=== PATIENT | male | born 1965 | race African-American/Black ===

== ENCOUNTER 2016-12-29 12:02 | Emergency (ER) | payer BC ==
[2016-12-29 12:14] VITALS: BP 158/87; PULSE 88; TEMP 98.8; BMI 34.2
[2016-12-29] MEDS ORDERED: IBUPROFEN 600 MG TABLET (FP) PO ONE ×2 (13:09→13:12)
--- NOTE | 2016-12-29 13:52 | PDOC ---
History of Present Illness - General Chief Complaint: Cold Symptoms Stated Complaint: CONGESTED Time Seen by Provider: 12/29/16 12:50 History Source: Patient Exam Limitations: No Limitations - History of Present Illness Initial Comments: 12/29/16 13:45 51 yr male no medical history with c/o congestion in nose, eye pain, sinus tenderness and cough. no fever , has body aches. Past History - Past Medical History Allergies/Adverse Reactions: Allergies Allergy/AdvReac Type Severity Reaction Status Date / Time No Known Allergies Allergy Verified 12/29/16 12:11 Home Medications: Ambulatory Orders Amlodipine Besylate [Norvasc -] 2.5 mg PO DAILY 06/02/13 Simvastatin 10 mg PO DAILY 08/02/14 Fluticasone Prop 0.05% Nasal [Flonase -] 1 - 2 spray NS DAILY #1 spray.pump Ketotifen Fumarate [Alaway] 2 drop OU DAILY #1 bottle 12/29/16 COPD: No HTN: Yes Hypercholesterolemia: Yes - Family Disease History Family Disease History: Heart Disease: Father - Immunization History Immunization Up to Date: Yes - Suicide/Smoking/Psychosocial Hx Smoking Status: No Smoking History: Never smoked Have you smoked in the past 12 months: No Number of Cigarettes Smoked Daily: 0 Information on smoking cessation initiated: No Hx Alcohol Use: No Drug/Substance Use Hx: No Substance Use Type: None *Physical Exam - Vital Signs Last Vital Signs Temp Pulse Resp BP Pulse Ox 98.8 F 88 18 158/87 100 12/29/16 12:12 12/29/16 12:12 12/29/16 12:12 12/29/16 12:12 12/29/16 12:12 - Physical Exam General Appearance: Yes: Nourished HEENT: positive: EOMI, CHIQUIS, Nasal Congestion. negative: TMs Normal, Pharynx Normal, Rhinorrhea, Sinus Tenderness Neck: positive: Supple. negative: Lymphadenopathy (R), Lymphadenopathy (L) Respiratory/Chest: positive: Lungs Clear, Normal Breath Sounds. negative: Chest Tender, Crackles, Rales, Wheezing Cardiovascular: positive: Regular Rhythm, Regular Rate Gastrointestinal/Abdominal: positive: Normal Bowel Sounds, Soft Musculoskeletal: positive: Normal Inspection Extremity: positive: Normal Capillary Refill, Normal Inspection, Normal Range of Motion Integumentary: positive: Normal Color, Dry, Warm Neurologic: positive: Fully Oriented, Alert, Normal Mood/Affect, Normal Response , Motor Strength 5/5 ED Treatment Course - RADIOLOGY Radiology Studies Ordered: Category Date Time Status CHEST PA & LAT [RAD] Stat Radiology 12/29/16 13:09 Completed - Medications Given in the ED: ED Medications Discontinued Medications Generic Name Dose Route Start Last Admin Trade Name Gisselle PRN Reason Stop Dose Admin Ibuprofen 600 mg 12/29/16 13:09 12/29/16 13:11 Motrin - PO 12/29/16 13:10 600 mg ONCE ONE Administration Medical Decision Making - Medical Decision Making 12/29/16 14:21 cc: nasal congestion, cough, body aches no fever , cough no abd pain or urinary complaints pt has history of HTN took meds today was sick with same symptoms last week 12/29/16 14:24 negative flu neg CXR pt is no toxic well appearing will treat with supportive care *DC/Admit/Observation/Transfer Diagnosis at time of Disposition: Upper respiratory infection, viral - Discharge Dispostion Disposition: HOME Condition at time of disposition: Good - Prescriptions Prescriptions: Fluticasone Prop 0.05% Nasal [Flonase -] 1 - 2 spray NS DAILY #1 spray.pump Ketotifen Fumarate [Alaway] 2 drop OU DAILY #1 bottle - Referrals Referrals: Nirav Brooks [Primary Care Provider] - - Patient Instructions Additional Instructions: drink pleanty of fluids and get rest take over the counter ibuprofen (600mg ) every 6-8hrs for fever or pain use the flonase spray as directed for sinus congestion and any post nasal drip use the eye drops as directed they will help with any inflammation or irrition in the eyes also increase vitamin C and Zinc in your diet to help boost immune system follow with your doctor if any worsening symptoms - Post Discharge Activity
== END 2016-12-29 14:22 | disposition home or self-care (01) ==
LOC: JERFT 12:02
DX: J06.9 Acute upper respiratory infection, unspecified (principal); B97.89 Other viral agents as the cause of diseases classified elsewhere; I10 Essential (primary) hypertension; E78.00 Pure hypercholesterolemia, unspecified
CPT/HCPCS: 71020-TC; 87804; 99281-25

== ENCOUNTER 2017-05-18 08:59 | Emergency (ER) | payer BC ==
[2017-05-18 09:12] VITALS: BP 130/95; PULSE 95; TEMP 98; BMI 36.9
--- NOTE | 2017-05-18 10:00 | PDOC ---
History of Present Illness - General Chief Complaint: Eye Problem Stated Complaint: EYE PROBLEM Time Seen by Provider: 05/18/17 09:53 History Source: Patient Exam Limitations: No Limitations - History of Present Illness Initial Comments: 05/18/17 11:51 CHIEF COMPLAINT:Bilateral eye redness, photophobia, pain HISTORY OF PRESENT ILLNESS: Patient is a 52-year-old male with history of pellucid marginal disease presents with bilateral eye pain, photophobia, redness which started yesterday after applying new contacts. Patient received contacts from his corneal specialist he was supposed to wear them 2 hours to date use to them after taking them off at 7 PM yesterday developed redness with pain. Severity: moderate Past History - Past Medical History Allergies/Adverse Reactions: Allergies Allergy/AdvReac Type Severity Reaction Status Date / Time No Known Allergies Allergy Verified 05/18/17 09:12 Home Medications: Ambulatory Orders Amlodipine Besylate [Norvasc -] 2.5 mg PO DAILY 06/02/13 Simvastatin 10 mg PO DAILY 08/02/14 Fluticasone Prop 0.05% Nasal [Flonase -] 1 - 2 spray NS DAILY #1 spray.pump Ketotifen Fumarate [Alaway] 2 drop OU DAILY #1 bottle 12/29/16 Moxifloxacin HCl [Vigamox 0.5% Eye Drops -] 1 drop OU TID #1 drops 05/18/17 COPD: No HTN: Yes Hypercholesterolemia: Yes - Family Disease History Family Disease History: Heart Disease: Father - Immunization History Immunization Up to Date: Yes - Suicide/Smoking/Psychosocial Hx Smoking Status: No Smoking History: Never smoked Have you smoked in the past 12 months: No Number of Cigarettes Smoked Daily: 0 Information on smoking cessation initiated: No Hx Alcohol Use: No Drug/Substance Use Hx: No Substance Use Type: None Review of Systems - Review of Systems Constitutional: No: Symptoms Reported HEENTM: Yes: Blurred Vision, Other (erythema with pain to bilateral eyes) Respiratory: No: Symptoms reported Cardiac (ROS): No: Symptoms Reported Musculoskeletal: No: Symptoms Reported Integumentary: No: Symptoms Reported Hematologic/Lymphatic: No: Symptoms Reported All Other Systems: Reviewed and Negative *Physical Exam - Vital Signs Last Vital Signs Temp Pulse Resp BP Pulse Ox 98 F 95 H 16 130/95 100 05/18/17 09:05 05/18/17 09:05 05/18/17 09:05 05/18/17 09:05 05/18/17 09:05 - Physical Exam General Appearance: Yes: Appropriately Dressed. No: Apparent Distress HEENT: positive: Other (after fluorescein staining to bilateral eyes, no corneal abrasions are noted, bilateral conjunctiva injected extending into the limbus.) Neck: negative: Tender, Tender lateral, Tender midline Respiratory/Chest: positive: Lungs Clear, Normal Breath Sounds. negative: Respiratory Distress, Accessory Muscle Use Cardiovascular: positive: Regular Rhythm, Regular Rate Lymphatic: negative: Adenopathy Integumentary: positive: Normal Color, Dry. negative: Erythema, Swelling, Ecchymosis, Bruising Neurologic: positive: Alert, Normal Mood/Affect, Normal Response, Motor Strength 5/5 Medical Decision Making - Medical Decision Making 05/18/17 12:01 A/P: Patient with bilateral injected conjunctiva, pain with photophobia I have spoken to patient's corneal specialist Dr. Woody at [phone], patient with chronic issues in regarding contact lenses in relation to the pellucid marginal disease. Will discharge patient on Vigamox, motrin for pain, follow up with MD Woody on . Patient verbalized understanding has had this reaction in the past. *DC/Admit/Observation/Transfer Diagnosis at time of Disposition: Pellucid marginal degeneration of both corneas Conjunctivitis Qualifiers: Conjunctivitis type: acute Acute conjunctivitis type: bacterial Laterality: bilateral Qualified Code(s): H10.33 - Unspecified acute conjunctivitis, bilateral - Discharge Dispostion Disposition: HOME Condition at time of disposition: Stable Admit: No - Prescriptions Prescriptions: Moxifloxacin HCl [Vigamox 0.5% Eye Drops -] 1 drop OU TID #1 drops - Referrals Referrals: Lore Norwood [Other] ( Rose 11:[address] [place] [address] ) - Patient Instructions Additional Instructions: No contact lenses Follow up on with Dr. Darrion Ceja for pain * Refrain from touching or scratching eye * Please wash hands frequently * Please followup with his primary care doctor in 2 days if symptoms persist * Medication as prescribed * Warm compresses to eye * If increased redness, swelling, pain to the eye please follow up with primary care doctor immediately or return to emergency room - Post Discharge Activity Forms/Work/School Notes: Back to Work
== END 2017-05-18 10:06 | disposition home or self-care (01) ==
LOC: JERFT 08:59
DX: H10.33 Unspecified acute conjunctivitis, bilateral (principal); H18.49 Other corneal degeneration; I10 Essential (primary) hypertension; E78.00 Pure hypercholesterolemia, unspecified
CPT/HCPCS: 99281-25

== ENCOUNTER 2017-05-31 09:43 | Emergency (ER) | payer BC ==
[2017-05-31 09:53] VITALS: BP 135/98; PULSE 77; TEMP 98.3; BMI 34.2
--- NOTE | 2017-05-31 10:52 | PDOC ---
History of Present Illness - General Chief Complaint: Eye Problem Stated Complaint: REVISIT, EYE PROBLEM Time Seen by Provider: 05/31/17 10:48 History Source: Patient Exam Limitations: No Limitations (52y/o M with b/l eye redness and blurred vision X 2 days, s/p ED visit 2wks ago) Past History - Travel Traveled outside of the country in the last 30 days: No Close contact w/someone who was outside of country & ill: No - Past Medical History Allergies/Adverse Reactions: Allergies Allergy/AdvReac Type Severity Reaction Status Date / Time No Known Allergies Allergy Verified 05/31/17 09:53 Home Medications: Ambulatory Orders Amlodipine Besylate [Norvasc -] 2.5 mg PO DAILY 06/02/13 Simvastatin 10 mg PO DAILY 08/02/14 Fluticasone Prop 0.05% Nasal [Flonase -] 1 - 2 spray NS DAILY #1 spray.pump Ketotifen Fumarate [Alaway] 2 drop OU DAILY #1 bottle 12/29/16 Moxifloxacin HCl [Vigamox 0.5% Eye Drops -] 1 drop OU TID #1 drops 05/18/17 COPD: No HTN: Yes Hypercholesterolemia: Yes - Family Disease History Family Disease History: Heart Disease: Father - Immunization History Immunization Up to Date: Yes - Suicide/Smoking/Psychosocial Hx Smoking Status: No Smoking History: Never smoked Have you smoked in the past 12 months: No Number of Cigarettes Smoked Daily: 0 Hx Alcohol Use: No Drug/Substance Use Hx: No Substance Use Type: None Review of Systems - Review of Systems Is the patient limited Tajik proficient: No Constitutional: No: Chills, Fever HEENTM: Yes: Eye Pain, Blurred Vision, Other (b/l eye redness). No: Tearing, Recent change in vision, Double Vision, Ear Pain, Ear Discharge, Tinnitus, Mouth Pain *Physical Exam - Vital Signs Last Vital Signs Temp Pulse Resp BP Pulse Ox 98.3 F 77 18 135/98 99 05/31/17 09:50 05/31/17 09:50 05/31/17 09:50 05/31/17 09:50 05/31/17 09:50 - Physical Exam General Appearance: Yes: Nourished, Appropriately Dressed HEENT: positive: EOMI, CHIQUIS, Photophobia, Other (b/l eye injection) Medical Decision Making - Medical Decision Making 05/31/17 10:51 52 years old male, with h/o Pellucid Marginal Eye disease--under the care of Corneal Specialist Dr. Collins, pt was seen in ED 2wks ago for photophobia, eye pain, Tx with Vigamox. He reports that he attempt to apply contact lense 2 days ago,, use contact lens cleaning solution. [place] eye irritation and photophobia. He is using vigamox as prescribed. Denies trauma. Pt has an appt to see his Corneal Specialist tomorrow. 05/31/17 12:07 EYE EXAMINATION: unable to get visual acuity, states he can only see with contact lense The lid and lashes are normal. Extraocular movements are intact. The conjunctiva is clear with erythema, + injection, no discharge The corneal surface is normal post tetracaine and fluorescein. There is no corneal abrasion or foreign body. There is no abnormal fluorescein uptake. The pupils are equal, round and reactive to light. The fundus shows normal vessels and normal discs. patient instructed to follow-up Corneal specialist as scheduled tomorrow. Continue Vigamox ad. Do not reapply contact lens until cleared to do so *DC/Admit/Observation/Transfer Diagnosis at time of Disposition: Conjunctivitis - Discharge Dispostion Disposition: HOME Condition at time of disposition: Stable - Referrals Referrals: Nirav Brooks [Primary Care Provider] - - Patient Instructions Additional Instructions: FOllow up Dr Woody as scheduled tomorrow Do not reapply contact lenses - Post Discharge Activity Forms/Work/School Notes: Back to Work
[2017-05-31] MEDS ORDERED: TETRACAINE 0.5% OPHTH SOLN 2 ML BOTTLE ONE (10:54)
[2017-05-31] MEDS ORDERED: FLUORESCEIN NA 1 EA STRIP ONE (10:54)
[2017-05-31] MEDS ORDERED: TETRACAINE 0.5% OPHTH SOLN 2 ML BOTTLE OU ONE (11:04)
[2017-05-31] MEDS ORDERED: FLUORESCEIN NA 1 EA STRIP OU ONE (11:05)
== END 2017-05-31 11:24 | disposition home or self-care (01) ==
LOC: JERFT 09:43
DX: H10.33 Unspecified acute conjunctivitis, bilateral (principal); I10 Essential (primary) hypertension; E78.00 Pure hypercholesterolemia, unspecified; Z86.69 Personal history of other diseases of the nervous system and sense organs
CPT/HCPCS: 99281-25

== ENCOUNTER 2018-01-05 05:38 | Emergency (ER) | payer BC ==
[2018-01-05 07:09] VITALS: BP 115/81; PULSE 78; TEMP 98.2; BMI 35.6
[2018-01-05] MEDS ORDERED: ACETAMINOPHEN 325 MG TABLET (FP) PO ONE (09:17)
--- NOTE | 2018-01-05 09:17 | PDOC ---
History of Present Illness - General Chief Complaint: Sore Throat Stated Complaint: SORE THROAT Time Seen by Provider: 01/05/18 07:29 History Source: Patient Exam Limitations: No Limitations - History of Present Illness Initial Comments: 01/05/18 09:13 Mr Washington is a 52 YOM with h/o HTN and HLD presenting with sore throat x 1 day tolerating PO and fluid intake denies sick contacts occasional cough, no production or congestion. denies smoking drugs or alcohol use no allergies or environmental triggers Past History - Past Medical History Allergies/Adverse Reactions: Allergies Allergy/AdvReac Type Severity Reaction Status Date / Time No Known Allergies Allergy Verified 01/05/18 07:09 Home Medications: Ambulatory Orders Amlodipine Besylate [Norvasc -] 2.5 mg PO DAILY 06/02/13 Simvastatin 10 mg PO DAILY 08/02/14 Fluticasone Prop 0.05% Nasal [Flonase -] 1 - 2 spray NS DAILY PRN 01/05/18 COPD: No CHF: No HTN: Yes Hypercholesterolemia: Yes - Surgical History Cardiac Surgery: No GI Surgery: No Lung Surgery: No Neurologic Surgery: No - Family Disease History Family Disease History: Heart Disease: Father - Immunization History Immunization Up to Date: Yes - Suicide/Smoking/Psychosocial Hx Smoking Status: No Smoking History: Never smoked Have you smoked in the past 12 months: No Number of Cigarettes Smoked Daily: 0 Information on smoking cessation initiated: No Hx Alcohol Use: No Drug/Substance Use Hx: No Substance Use Type: None Review of Systems - Review of Systems Able to Perform ROS?: Yes Comments:: 01/05/18 09:14 Constitutional: no fevers or chills. HEENT: no headache or dizziness. No congestion.+sore throat CVS: no cp or syncope. Resp: no sob. + cough. Abdomen: no abdominal pain, nausea or vomiting. MUSCULOSKELETAL: No joint pain and swelling. No neck or back pain. SKIN: no redness or skin changes, no discharge, no rash. Hematologic: no easy bruising/bleeding. NEUROLOGIC: No headache, dizziness All other systems reviewed and negative, or as documented in HPI. *Physical Exam - Vital Signs Last Vital Signs Temp Pulse Resp BP Pulse Ox 98.2 F 78 16 115/81 98 01/05/18 05:40 01/05/18 05:40 01/05/18 05:40 01/05/18 05:40 01/05/18 05:40 - Physical Exam Comments: 01/05/18 09:14 General: Well appearing, awake and alert, NAD. HEENT: NCAT, PERRL, EOMI, clear conjunctiva, anicteric, moist mucus membranes, clear oropharynx, no oral lesions.. normal phonation Neck: neck supple, FROM Resp: CTAB, normal and even respirations, no respiratory distress CVS: RRR, no murmurs, 2+ peripheral pulses throughout, no peripheral edema Abdomen: soft, NTND, no peritoneal signs. Back: nontender, normal inspection and ROM MSK: no edema, STOVER x4, ROM intact. No clubbing or cyanosis. normal bulk and tone. Extrem: no calf tenderness Neuro: alert, oriented appropriately; no focal neurologic deficits Skin: warm and well perfused, cap refill <2 sec, normal color Medical Decision Making - Medical Decision Making 01/05/18 09:15 52-year-old male with history of hypertension hyperlipidemia presenting with sore throat times one day. Vital signs are normal, no fevers. Airway patent, or gross findings on oropharyngeal exam. strep test ag prelim negative, so likely neg for strep throat cultures to follow tolerating PO intake, given tylenol with relief no systemic findings, well appearing. I discussed the physical exam findings, ancillary test results and final diagnoses with the patient. I answered all of the patient's questions. The patient was satisfied with the care received and felt comfortable with the discharge plan and treatment plan. The patient will return to the Emergency Department with any new, persistent or worsening symptoms. - supportive care instructions including tylenol for analgesia, hydration, salt water gargles, warm lemon tea and clean/fresh air. 01/05/18 09:18 01/05/18 09:33 *DC/Admit/Observation/Transfer Diagnosis at time of Disposition: Pharyngitis - Discharge Dispostion Disposition: HOME Condition at time of disposition: Good Decision to Admit order: No - Referrals Referrals: Nahomi Pope MD [Primary Care Provider] - - Patient Instructions Printed Discharge Instructions: DI for Pharyngitis/Tonsillopharyngitis -- Adult Additional Instructions: - supportive care instructions including tylenol for analgesia, hydration, salt water gargles, warm lemon tea and clean/fresh air. follow up with primary doctor follow up on your throat culture return if worsening symptoms including high fever, difficulty with airway and swallowing, worse pain, respiratory distress or dehydration. - Post Discharge Activity Forms/Work/School Notes: Back to Work
[2018-01-05] MEDS ORDERED: ACETAMINOPHEN 325 MG TABLET (FP) ONE (09:36)
== END 2018-01-05 09:41 | disposition home or self-care (01) ==
LOC: JER 05:38
DX: J02.9 Acute pharyngitis, unspecified (principal); I10 Essential (primary) hypertension; E78.00 Pure hypercholesterolemia, unspecified; E78.5 Hyperlipidemia, unspecified
CPT/HCPCS: 87070; 99282-25

== ENCOUNTER 2018-01-21 16:33 | Emergency (ER) | payer BC ==
--- NOTE | 2018-01-21 17:23 | PDOC ---
Rapid Medical Evaluation Time Seen by Provider: 01/21/18 17:22 Medical Evaluation: Allergies Allergy/AdvReac Type Severity Reaction Status Date / Time No Known Allergies Allergy Verified 01/05/18 07:09 I have performed a brief in-person evaluation of this patient. The patient presents with a chief complaint of: here because a got a call of a positive throat culture 2 weeks ago. he has no complaints. he came in because his son is here to be seen Pertinent physical exam findings: none I have ordered the following: nothing The patient will proceed to the ED for further evaluation. Discharge Disposition - Diagnosis Cough - Referrals - Patient Instructions - Post Discharge Activity
[2018-01-21 17:28] VITALS: BP 131/77; PULSE 99; TEMP 98.7; BMI 34.2
--- NOTE | 2018-01-21 17:51 | PDOC ---
History of Present Illness - General Chief Complaint: Cold Symptoms Stated Complaint: COLD SYMPTOMS Time Seen by Provider: 01/21/18 17:22 History Source: Patient Exam Limitations: No Limitations - History of Present Illness Initial Comments: 01/21/18 17:45 HISTORY OF PRESENT ILLNESS: 52-year-old male with past medical history of hypertension who presents emergency department for reevaluation of sore throat and cough for the past 3 weeks. Patient was seen and evaluated here on January 05 was found to have a positive streptococcal infection. Patient was unable to be contacted since that time and has never been treated. Patient reports continued sore throat and dry cough. No recent travel or sick contacts. PAST MEDICAL HISTORY: HTN SURGICAL HISTORY: Denies ALLERGIES: No known drug allergies REVIEW OF SYSTEMS General/Constitutional: Denies fever or chills. Denies weakness, weight change. HEENT: Denies change in vision. Denies ear pain or discharge. +sore throat. Cardiovascular: Denies chest pain or shortness of breath. Respiratory: Dry cough. Denies wheezing, or hemoptysis. Gastrointestinal: Denies nausea, vomiting, diarrhea or constipation. Denies rectal bleeding. Genitourinary: Denies dysuria, frequency, or change in urination. Musculoskeletal: Denies joint or muscle swelling or pain. Denies neck or back pain. Skin and breasts: Denies rash or easy bruising. Neurologic: Denies headache, vertigo, loss of consciousness, or loss of sensation. Psychiatric: Denies depression or anxiety. Endocrine: Denies increased thirst. Denies abnormal weight change. Hematologic/Lymphatic: Denies anemia, easy bleeding, or history of blood clots. Allergic/Immunologic: Denies hives or skin allergy. Denies latex allergy. PHYSICAL EXAM General Appearance: Well-appearing, appropriately dressed. No apparent distress , no intoxication. HEENT: EOMI, PERRLA, normal ENT inspection, normal voice, TMs normal. No conjunctival pallor. No photophobia, scleral icterus. OP erythematous without lesions or exudate. Neck: Supple. Trachea midline. No tenderness, rigidity, carotid bruit, stridor , lymphadenopathy, or thyromegaly. Respiratory/Chest: Lungs CTAB. No shortness of breath, chest tenderness, respiratory distress, accessory muscle use. No crackles, rales, rhonchi, stridor , wheezing, dullness Cardiovascular: RRR. S1, S2. No JVD, murmur, bradycardia, tachycardia. Past History - Past Medical History Allergies/Adverse Reactions: Allergies Allergy/AdvReac Type Severity Reaction Status Date / Time No Known Allergies Allergy Verified 01/21/18 17:22 Home Medications: Ambulatory Orders Amlodipine Besylate [Norvasc -] 2.5 mg PO DAILY 06/02/13 Simvastatin 10 mg PO DAILY 08/02/14 Fluticasone Prop 0.05% Nasal [Flonase -] 1 - 2 spray NS DAILY PRN 01/05/18 Amoxicillin - [Amoxicillin 500mg Capsule -] 500 mg PO BID #20 capsule 01/21/18 COPD: No CHF: No HTN: Yes Hypercholesterolemia: Yes - Surgical History Cardiac Surgery: No GI Surgery: No Lung Surgery: No Neurologic Surgery: No - Family Disease History Family Disease History: Heart Disease: Father - Immunization History Immunization Up to Date: Yes - Suicide/Smoking/Psychosocial Hx Smoking Status: No Smoking History: Never smoked Have you smoked in the past 12 months: No Number of Cigarettes Smoked Daily: 0 Hx Alcohol Use: No Drug/Substance Use Hx: No Substance Use Type: None *Physical Exam - Vital Signs Last Vital Signs Temp Pulse Resp BP Pulse Ox 98.7 F 99 H 18 131/77 99 01/21/18 17:27 01/21/18 17:27 01/21/18 17:27 01/21/18 17:27 01/21/18 17:27 Moderate Sedation - Procedure Monitoring Vital Signs: Procedure Monitoring Vital Signs Temperature 98.7 F 01/21/18 17:27 Pulse Rate 99 H 01/21/18 17:27 Respiratory Rate 18 01/21/18 17:27 Blood Pressure 131/77 01/21/18 17:27 O2 Sat by Pulse Oximetry (%) 99 01/21/18 17:27 Medical Decision Making - Medical Decision Making 01/21/18 17:45 A/P: 52-year-old man with sore throat and dry cough for the past 3 weeks. TMs within normal limits bilaterally Oropharynx erythematous No lesions and exudate present No abscess present Lungs clear to auscultation bilaterally Physical exam is consistent with a pharyngitis. Pt had a positive streptococcal pharyngitis on 01/05. I will treat the patient for strep throat with amoxicillin 500 mg twice a day for 10 days. The patient has been instructed to purchase a new toothbrush into [facility] on day 3 of antibiotic therapy. Pt verbalizes understanding of discharge instructions. *DC/Admit/Observation/Transfer Diagnosis at time of Disposition: Pharyngitis Qualifiers: Pharyngitis/tonsillitis etiology: streptococcus Qualified Code(s): J02.0 - Streptococcal pharyngitis - Discharge Dispostion Disposition: HOME Condition at time of disposition: Stable Decision to Admit order: No - Prescriptions Prescriptions: Amoxicillin - [Amoxicillin 500mg Capsule -] 500 mg PO BID #20 capsule - Referrals Referrals: Nahomi Pope MD [Primary Care Provider] - - Patient Instructions Additional Instructions: Take amoxicillin as prescribed. Salt water garggles. Throw away your toothbrush in 3 days and start using a new toothbrush. No sharing of drinks, utensils or toothbrushes. Take Motrin as directed by superintendent sanitation's instructions. Return to ED for worsening fevers, worsening sore throat, chest pain, shortness of breath or any other concerns. - Post Discharge Activity Forms/Work/School Notes: Back to Work
== END 2018-01-21 17:51 | disposition home or self-care (01) ==
LOC: JERFT 16:33
DX: J02.0 Streptococcal pharyngitis (principal); B95.5 Unspecified streptococcus as the cause of diseases classified elsewhere; I10 Essential (primary) hypertension; E78.00 Pure hypercholesterolemia, unspecified
CPT/HCPCS: 99281-25

== ENCOUNTER 2018-04-12 18:48 | Observation (INO) | payer BC ==
[2018-04-12 19:07] VITALS: BMI 35.6
[2018-04-12] MEDS ORDERED: ASPIRIN 81 MG CHEWABLE TABLETS PO ONE (21:14)
--- NOTE | 2018-04-12 21:18 | PDOC ---
Attending Attestation - HPI HPI: 04/12/18 21:37 The patient is a 53 year old male with a PMH of HTN and HLD who presents to ER with chest pain for the past 3 days. Patient describes the chest pain as brief lasting approximately 1 second at a time, that occur 4 times per day, localized on the left side of his chest with radiation to the left shoulder and the left side of his scalp. Patient was seen at [facility] yesterday and had blood work and an EKG done there, which were both negative. Patient was discharged home from the ER and told to follow up with cardiology. Patient was seen by his PCP, Dr. Pope, who spoke to Dr. Macedo, cardiology, and told the patient to come to the ER for further evaluation. Patient is a nonsmoker. Patient has a negative cardiac family history. Patient admits to having a stress test many years ago. Patient denies any shortness of breath, nausea, vomiting, dizziness, lightheadedness, diarrhea, constipation, or urinary symptoms. Allergies: NKDA Surgeries: None reported Social Hx: No reported alcohol, drug or cigarette use. PCP: Dr. Pope <Kathi Resendez - Last Filed: 04/12/18 21:37> - Resident Resident Name: Sekou Roe - ED Attending Attestation I have performed the following: I have examined & evaluated the patient, The case was reviewed & discussed with the resident, I agree w/resident's findings & plan - Physicial Exam PE: 04/12/18 21:56 Agree with resident's exam - Medical Decision Making 04/12/18 21:55 Patient had active pain while in his primary care physician's office and was advised via telephone to report to the emergency department In light of multiple cardiac risk factors and recent chest pain, most recently in the emergency department waiting room he will be admitted for further evaluation At this time EKG shows no acute or concerning ST segment changes Plan for observation on hospitalist service pending lab results <Sonam Dai - Last Filed: 04/12/18 21:56>
--- NOTE | 2018-04-12 21:32 | PDOC ---
History of Present Illness - General Chief Complaint: Chest Pain Stated Complaint: CHEST PAIN Time Seen by Provider: 04/12/18 21:14 - History of Present Illness Initial Comments: 04/12/18 21:35 53M with pmh of HTN and HLD presents to the ED with random, 1 second episodes of sharp chest pain spread out throughout the day (4 episodes a day) also affecting his left shoulder and the left side of his occipital head. He visited another ER yesterday, all labs and EKG were negative, and was told to follow up with a line erector. He went to see his PCP today who called Dr. Ludwig who advised him to go to the ER. Patient had 2 more episodes in the waiting room. Denies shortness of breath, sweating, dizziness. Past History - Past Medical History Allergies/Adverse Reactions: Allergies Allergy/AdvReac Type Severity Reaction Status Date / Time No Known Allergies Allergy Verified 04/12/18 21:34 Home Medications: Ambulatory Orders Amlodipine Besylate [Norvasc -] 5 mg PO HS 06/02/13 Simvastatin 20 mg PO HS 08/02/14 Ergocalciferol [Vitamin D2] 50,000 unit PO SA 04/12/18 COPD: No CHF: No HTN: Yes Hypercholesterolemia: Yes - Surgical History Cardiac Surgery: No GI Surgery: No Lung Surgery: No Neurologic Surgery: No - Family Disease History Family Disease History: Heart Disease: Father - Immunization History Immunization Up to Date: Yes - Suicide/Smoking/Psychosocial Hx Smoking Status: No Smoking History: Never smoked Have you smoked in the past 12 months: No Number of Cigarettes Smoked Daily: 0 Information on smoking cessation initiated: No Hx Alcohol Use: No Drug/Substance Use Hx: No Substance Use Type: None Review of Systems - Review of Systems Able to Perform ROS?: Yes Is the patient limited Vietnamese proficient: No Constitutional: No: Symptoms Reported HEENTM: No: Symptoms Reported Respiratory: No: Symptoms reported Cardiac (ROS): Yes: See HPI ABD/GI: No: Symptoms Reported Integumentary: No: Symptoms Reported Neurological: No: Symptoms reported All Other Systems: Reviewed and Negative *Physical Exam - Vital Signs Last Vital Signs Temp Pulse Resp BP Pulse Ox 98.4 F 85 18 99/74 98 04/12/18 19:02 04/12/18 19:02 04/12/18 19:02 04/12/18 19:02 04/12/18 22:18 - Physical Exam General Appearance: Yes: Nourished, Appropriately Dressed. No: Apparent Distress HEENT: positive: EOMI, CH[place]QU[place], Normal ENT Inspection Respiratory/Chest: positive: Lungs Clear, Normal Breath Sounds. negative: Chest Tender, Respiratory Distress Cardiovascular: positive: Regular Rhythm, Regular Rate, S1, S2 Gastrointestinal/Abdominal: positive: Normal Bowel Sounds, Flat, Soft. negative : Tender Musculoskeletal: positive: Normal Inspection. negative: CVA Tenderness Extremity: positive: Normal Capillary Refill, Normal Inspection, Normal Range of Motion Integumentary: positive: Normal Color, Dry, Warm Neurologic: positive: Fully Oriented, Alert, Normal Mood/Affect, Normal Response , Motor Strength 5/5 Heart Score/ECG Review - History History: Slightly suspicious - Electrocardiogram EKG: Normal - Age Age: 45-65 - Risk Factors Risk Factors Heart Score: Yes Hx Hypercholesterolemia, Yes Hx Hypertension Based on the list above the patient has:: 1-2 risk factors Moderate Sedation - Procedure Monitoring Vital Signs: Procedure Monitoring Vital Signs Temperature 98.4 F 04/12/18 19:02 Pulse Rate 85 04/12/18 19:02 Respiratory Rate 18 04/12/18 19:02 Blood Pressure 99/74 04/12/18 19:02 O2 Sat by Pulse Oximetry (%) 98 04/12/18 22:18 ED Treatment Course - LABORATORY CBC & Chemistry Diagram: 04/12/18 21:55 04/12/18 21:55 - ADDITIONAL ORDERS Additional order review: Laboratory Results 04/12/18 04/12/18 04/12/18 21:55 21:55 21:55 PT with INR 13.10 H INR 1.11 H Sodium 140 Potassium 4.0 Chloride 103 Carbon Dioxide 28 Anion Gap 9 BUN 15 Creatinine 1.1 Creat Clearance w eGFR > 60 Random Glucose 104 Calcium 9.1 Magnesium 2.3 Total Bilirubin 1.1 H AST 14 L ALT 20 Alkaline Phosphatase 77 Creatine Kinase 179 Creatine Kinase Index 0.8 CK-MB (CK-2) 1.5 Troponin I Cancelled < 0.02 Total Protein 7.6 Albumin 4.1 04/12/18 21:55 RBC 4.44 MCV 90.9 MCHC 35.7 RDW 14.3 MPV 8.7 Neutrophils % 55.8 D Lymphocytes % 31.6 D Monocytes % 9.7 Eosinophils % 1.7 D Basophils % 1.2 D - RADIOLOGY Radiology Studies Ordered: Category Date Time Status CHEST X-RAY PORTABLE* [RAD] Stat Radiology 04/12/18 21:15 Taken - Medications Given in the ED: ED Medications Discontinued Medications Generic Name Dose Route Start Last Admin Trade Name Freq PRN Reason Stop Dose Admin Aspirin 162 mg 04/12/18 21:14 04/12/18 22:01 Asa - PO 04/12/18 21:15 162 mg ONCE ONE Administration Medical Decision Making - Medical Decision Making 04/12/18 22:19 53m with HTN and HLD presenting with atypical chest pain for 3 days. Will obtain ekg and basic labs. EKG normal. Spoke to Dr Paez who will see the aptient on the floor. Admit to tele obs. *DC/Admit/Observation/Transfer Diagnosis at time of Disposition: Atypical chest pain - Discharge Dispostion Condition at time of disposition: Stable Decision to Admit order: Yes Decision to Admit order Date/Time: Decision to Admit Order Category Date Time Status Decision to Admit to Hospital Routine Admission 04/12/18 23:12 Active - Referrals Referrals: Nahomi Pope MD [Primary Care Provider] - - Patient Instructions - Post Discharge Activity
[2018-04-12] MEDS ORDERED: ASPIRIN 81 MG CHEWABLE TABLETS ONE (21:43)
[2018-04-12 22:24] LABS: BASO % 1.2 % (0-2.0); EOS % 1.7 % (0-4.5); HEMATOCRIT 40.3 % (35.4-49); HEMOGLOBIN 14.4 GM/dL (11.7-16.9); LYMPH % 31.6 % (8-40); MCH 32.5 pg (25.7-33.7); MCHC 35.7 g/dl (32.0-35.9); MEAN CELL VOLUME 90.9 fl (80-96); MEAN PLT VOLUME 8.7 fl (7.5-11.1); MONO % 9.7 % (3.8-10.2); NEUT % 55.8 % (42.8-82.8); PLATELET COUNT 220 K/MM3 (134-434); RBC 4.44 M/mm3 (4.00-5.60); RDW 14.3 % (11.9-15.9); WHITE BLOOD COUNT 5.9 K/mm3 (4.0-10.0)
[2018-04-12 22:40] LABS: INR 1.11 (0.83-1.09); PROTHROMBIN TIME (PATIENT) 13.1 SEC (9.7-13.0)
[2018-04-12 23:00] LABS: ALBUMIN 4.1 g/dl (3.4-5.0); ALK PHOS 77 U/L (45-117); ANION GAP 9 MMOL/L (8-16); BILIRUBIN,TOTAL 1.1 mg/dL (0.2-1); BLOOD UREA NITROGEN 15 mg/dL (7-18); CALCIUM 9.1 mg/dL (8.5-10.1); CHLORIDE 103 mmol/L (98-107); CO2 28 mmol/L (21-32); CREATININE 1.1 mg/dL (0.55-1.3); GLUCOSE,RANDOM 104 mg/dL (74-106); MAGNESIUM 2.3 mg/dL (1.8-2.4); SGOT/AST 14 U/L (15-37); SGPT/ALT 20 U/L (13-61); SODIUM 140 mmol/L (136-145); TOT PROT 7.6 g/dl (6.4-8.2)
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
--- NOTE | 2018-04-13 00:50 | PN ---
Teaching Attending Note Name of Resident: Dia Avina ATTENDING PHYSICIAN STATEMENT I saw and evaluated the patient. I reviewed the resident's note and discussed the case with the resident. I agree with the resident's findings and plan as documented. SUBJECTIVE: Seen and examined; please see resident note for further historical details. Briefly this is a 53 y/o male with a PMH of GERD and HTN on amlodipine who presents with several days of intermittent chest pain that was waxing and waning in nature but recently became more constant. L-sided, nonreproducible, sharp, and moderate in intensity. Seen in [place] on Thursday with this and had a negative work up in their ER and was discharged for followup with a CV up there. He lives in [place], though, so when he came back home and continued to have pain he saw his PCP who sent him to the ER after speaking with Dr. Macedo. EKG unremarkable and troponin is negative initially. He was chest pain free when I saw him in the ER. He is in good spirits. Has been stressed at home and friend of [place] 1 week ago. Poor diet habits, non-smoker, non- drinker. He will be placed on telemetry on the medicine service with CV consultation and will likely require further testing 10 sys ROS done and negative aside from HPI PMH, PSH, Family hx, Social hx reviewed Medication list pending reconciliation; he didn't take tonight's BP med OBJECTIVE: VS, labs, imaging reviewed NAD, AAO, Resting comfortably in bed NC AT EOMI PERRLA RRR s1/2 no mgr Lungs CTAB, w/ sym exp NT ND +BS CN2-12 wnl, no fnd Normal mood, appropriate behavior EKG reviewed CXR without acute disease pending official report Negative initial troponin; labs as a whole are unremarkable in general ASSESSMENT AND PLAN: Patient presents for several days of chest pain 1) Chest pain in adult, r/o ACS -Place on telemetry, trend troponin, monitor for fruther sx. -Check A1c, lipids, TSH to stratify risk -If he does have ACS change statin to atorva or crestor -ASA 81mg PO QD for primary prevention -CV is aware of patient and will see in the AM 2) HTN -Giving tonights BP med; monitor while inpatient. May need adjustment of regimine depending on what is found 3) HLD -Continue statin; adjust if needed FENA -LR@60 while NPO -PRN replete -NPO in case stress needed -As tolerated Full Code
[2018-04-13] MEDS ORDERED: LACTATED RINGERS SOLUTION 1,000 ML/1,000 ML INFUS.BAG IV SCH (01:15)
[2018-04-13 07:25] LABS: EOS % 2.2 % (0-4.5); HEMATOCRIT 37.7 % (35.4-49); HEMOGLOBIN 13.1 GM/dL (11.7-16.9); LYMPH % 38.8 % (8-40); MCH 31.4 pg (25.7-33.7); MCHC 34.8 g/dl (32.0-35.9); MEAN CELL VOLUME 90.1 fl (80-96); MEAN PLT VOLUME 8.5 fl (7.5-11.1); MONO % 11.7 % (3.8-10.2); NEUT % 46.3 % (42.8-82.8); PLATELET COUNT 201 K/MM3 (134-434); RBC 4.19 M/mm3 (4.00-5.60); RDW 13.9 % (11.9-15.9); WHITE BLOOD COUNT 5.1 K/mm3 (4.0-10.0)
[2018-04-13 08:01] LABS: ALBUMIN 3.6 g/dl (3.4-5.0); ALK PHOS 78 U/L (45-117); ANION GAP 6 MMOL/L (8-16); BILIRUBIN,TOTAL 0.9 mg/dL (0.2-1); BLOOD UREA NITROGEN 14 mg/dL (7-18); CALCIUM 8.3 mg/dL (8.5-10.1); CHLORIDE 104 mmol/L (98-107); CHOLESTEROL 182 mg/dL (50-200); CO2 28 mmol/L (21-32); CREATININE 0.9 mg/dL (0.55-1.3); GLUCOSE,RANDOM 91 mg/dL (74-106); HDL CHOLESTEROL 53 mg/dL (40-60); PHOSPHOROUS 4.7 mg/dL (2.5-4.9); POTASSIUM 3.8 mmol/L (3.5-5.1); SGOT/AST 14 U/L (15-37); SGPT/ALT 18 U/L (13-61); SODIUM 138 mmol/L (136-145); TOT PROT 6.7 g/dl (6.4-8.2); TRIGLYCERIDES 106 mg/dL (0-150)
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
[2018-04-13] MEDS ORDERED: ASPIRIN 81 MG CHEWABLE TABLETS PO SCH (10:00)
[2018-04-13] MEDS ORDERED: ENOXAPARIN NA (PORCINE) 40 MG/0.4 ML DISP.SYRIN SQ SCH (10:00)
[2018-04-13] MEDS ORDERED: ASPIRIN 81 MG CHEWABLE TABLETS ONE (10:08)
[2018-04-13] MEDS ORDERED: ENOXAPARIN NA (PORCINE) 40 MG/0.4 ML DISP.SYRIN SQ ONE (10:08)
--- NOTE | 2018-04-13 10:50 | EKG ---
Test Reason : Blood Pressure : / mmHG Vent. Rate : 088 BPM Atrial Rate : 088 BPM P-R Int : 174 ms QRS Dur : 104 ms QT Int : 364 ms P-R-T Axes : 047 005 040 degrees QTc Int : 440 ms NORMAL SINUS RHYTHM NORMAL ECG WHEN COMPARED WITH ECG OF 30-AUG-2014 01:34, NO SIGNIFICANT CHANGE WAS FOUND Confirmed by Santino Reed MD ([id number]) on 04/13/2018 10:50:09 AM Referred By: Confirmed By:Santino Reed MD
--- NOTE | 2018-04-13 12:39 | PN ---
Progress Note, Physician Chief Complaint: Pt A&ox3; had several additiional bouts of brief chest pain since being in the ER. History of Present Illness: The patient is a 53 year old black male with a PMH of HTN, HLD, obese (s/p gastric bypass surgery 2014), relatively sedentary, who presents to ER with chest pain for the past 3 days. Patient describes the chest pain as brief lasting approximately 1 second at a time, that occur 4 times per day, localized on the left side of his chest with radiation to the left shoulder and the left side of his scalp. Patient was seen at [facility] yesterday and had blood work and an EKG done there, which were both negative. Patient was discharged home from the ER and told to follow up with cardiology. Patient was seen by his PCP, Dr. Pope. I then spoke to the patient by telephone; while conversing, he began having the pain again and decided to come to the ER for further evaluation. Patient is a nonsmoker. Patient has a negative cardiac family history. Patient admits to having a stress test many years ago. 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 He is on his feet much of the day, but does little in the way of prolonged aerobic exercise. His mother smoked, but seldom when in the house. - Current Medication List Current Medications: Active Medications Amlodipine Besylate (Norvasc -) 5 mg PO HS [facility] Aspirin (Asa -) 81 mg PO DAILY [facility] Last Admin: 04/13/18 10:51 Dose: 81 mg Atorvastatin Calcium (Lipitor -) 10 mg PO HS [facility] Enoxaparin Sodium (Lovenox -) 40 mg SQ DAILY [facility] Last Admin: 04/13/18 10:52 Dose: 40 mg Lactated Ringer's (Lactated Ringers Solution) 1,000 ml in 1,000 mls @ 60 mls/ hr IV ASDIR [facility] Last Admin: 04/13/18 06:32 Dose: 60 mls/hr - Objective Vital Signs: Vital Signs Temperature 97.9 F 04/13/18 06:09 Pulse Rate 73 04/13/18 06:09 Respiratory Rate 15 04/13/18 06:09 Blood Pressure 117/78 04/13/18 06:09 O2 Sat by Pulse Oximetry (%) 98 04/13/18 06:09 Constitutional: Yes: Calm, Obese Eyes: Yes: WNL HENT: Yes: WNL Cardiovascular: Yes: WNL Respiratory: Yes: WNL Gastrointestinal: Yes: WNL ...Rectal Exam: Yes: Deferred Genitourinary: No: Anuria Musculoskeletal: Yes: WNL Extremities: Yes: WNL Edema: No Peripheral Pulses WNL: Yes Integumentary: Yes: WNL Neurological: Yes: WNL ...Motor Strength: WNL Psychiatric: Yes: WNL Labs: CBC, BMP 04/13/18 05:30 04/13/18 06:30 INR, PTT INR 1.11 (0.83-1.09) H 04/12/18 21:55 Abnormal Lab Results 04/12/18 04/12/18 04/13/18 21:55 21:55 05:30 Monocytes % 11.7 H PT with INR 13.10 H INR 1.11 H Anion Gap Calcium Total Bilirubin 1.1 H AST 14 L Total LDL Cholesterol 04/13/18 06:30 Monocytes % PT with INR INR Anion Gap 6 L Calcium 8.3 L Total Bilirubin AST 14 L Total LDL Cholesterol 117 H - ....Imaging Chest X-ray: Image Reviewed EKG: Image Reviewed Problem List - Problems (1) HTN (hypertension) Assessment/Plan: on amlodipine. Code(s): I10 - ESSENTIAL (PRIMARY) HYPERTENSION (2) Hyperlipidemia Assessment/Plan: Pt has been on simvastatin 20 mg qhs at home. LDL still >120 mg/dL; if atorvastatin to be used, would increase to 20 mg daily. Code(s): E78.5 - HYPERLIPIDEMIA, UNSPECIFIED (3) Obese Assessment/Plan: s/p gastric bypass surgery. Prior to it (?2014), he had weighed 325 lbs; he reduced to 250 lbs, but has gained some back (presently 270 lbs). A long discussion was had about the mportance of heart-healthy diet, portion control, and exercise as aids to losing weight. Pt says he would prefer not to have to take any medications; weight loss may contribute to minimizing need for medications. Code(s): E66.9 - OBESITY, UNSPECIFIED (4) Sedentary lifestyle Code(s): Z91.89 - OTH PERSONAL RISK FACTORS, NOT ELSEWHERE CLASSIFIED (5) Sleep apnea Assessment/Plan: r/o with sleep studies Code(s): G47.30 - SLEEP APNEA, UNSPECIFIED (6) Atypical chest pain Assessment/Plan: 1st TNI < 0.02 x 3. EKG: no acute STT changes. Continued episodes of chest pain. Multiple CAD risks (age; race; gender; HTN; hyperlipidemia; obesity; sedentary). For stress MIBI today; if no significant ischemia, pt may be follwed as outpatient from cardiac perspective. Addendum: Stress treadmill MIBI today: no ischemia. Plan to f/u as outpatient. Code(s): R07.89 - OTHER CHEST PAIN
--- NOTE | 2018-04-13 13:05 | ECHO ---
Name: LUPE REDMAN Exam:Adult Echocardiogram Study Date: 04/13/2018 08:26 AM Age: 53 yrs Reason For Study: CHEST PAIN Height: 73 in Weight: 270 lb BSA: 2.4 m2 MMode/2D Measurements & Calculations IVSd: 0.92 cm Ao root diam: 3.1 cm LVIDd: 5.6 cm LA dimension: 4.2 cm LVIDs: 3.9 cm LVPWd: 1.1 cm EDV(Teich): 152.8 ml LVOT diam: 2.3 cm ESV(Teich): 67.8 ml Doppler Measurements & Calculations MV E max darby: 57.1 cm/sec Med Peak E' Darby: 7.6 cm/sec MV A max darby: 66.7 cm/sec Med E/e': 7.5 MV E/A: 0.86 Lat Peak E' Darby: 8.3 cm/sec Lat E/e': 6.8 Procedure A complete two-dimensional transthoracic echocardiogram was performed (2D, M-mode, Doppler and color flow Doppler). Left Ventricle The left ventricular size, thickness and function are normal. Ejection Fraction = 65%. The transmitra l spectral Doppler flow pattern is normal for age. The left ventricular wall motion is normal. Right Ventricle The right ventricle is normal in size and function. Atria The left atrium is borderline dilated. Right atrial size is normal. Mitral Valve The mitral valve is normal in structure and function. There is trace mitral regurgitation. Tricuspid Valve The tricuspid valve is normal in structure and function. There is trace tricuspid regurgitation. Ther e was insufficient TR detected to calculate RV systolic pressure. Aortic Valve The aortic valve is normal in structure and function. Pulmonic Valve The pulmonic valve is not well seen, but is grossly normal. Great Vessels The aortic root is normal size. Pericardium/Pleura There is no pericardial effusion. There is no pleural effusion. Interpretation Summary This was essentially a normal study. This degree of valvular regurgitation is within normal limits. T he left ventricular size, thickness and function are normal Ejection Fraction = 65%. The right ventricle is normal in size and function. The left atrium is borderline dilated. There is trace mitral regurgitation. There is trace tricuspid regurgitation. MD Santino Reed 04/13/2018 01:05 PM
--- NOTE | 2018-04-13 15:46 | DS ---
Physical Examination Vital Signs: Vital Signs Temperature 36.6 C 04/13/18 06:09 Pulse Rate 73 04/13/18 06:09 Respiratory Rate 15 04/13/18 06:09 Blood Pressure 117/78 04/13/18 06:09 O2 Sat by Pulse Oximetry (%) 98 04/13/18 06:09 Constitutional: Yes: Well Nourished, No Distress, Calm Cardiovascular: Yes: Regular Rate and Rhythm. No: Gallop, Murmur, Rub Respiratory: Yes: Regular, CTA Bilaterally. No: Rales, Rhonchi, Wheezes Gastrointestinal: Yes: Normal Bowel Sounds, Soft. No: Distention, Tenderness Extremities: Yes: WNL Edema: No Labs: CBC, BMP 04/13/18 05:30 04/13/18 06:30 Discharge Summary Reason For Visit: ATYPICAL CHEST PAIN Current Active Problems Atypical chest pain (Acute) HTN (hypertension) (Acute) Hyperlipidemia (Acute) Obese (Acute) Sedentary lifestyle (Acute) Sleep apnea (Acute) Hospital Course: Mr Washington is a 53 year old male who comes in with chest pain. He was admitted to telemetry observation. Cardiac enzymes x3 were sent and negative. His EKG was negative for ischemia. He underwent ECHO and stress test which were normal. He was seen by cardiology and cleared. He is safe for discharge home today. 31 minutes spent in preparation of this discharge. Condition: Stable - Instructions Diet, Activity, Other Instructions: resume previous diet and activity Referrals: Nahomi Pope MD [Primary Care Provider] - Jovani Macedo MD [Staff Physician] - Disposition: HOME - Home Medications Comprehensive Discharge Medication List: Ambulatory Orders Amlodipine Besylate [Norvasc -] 5 mg PO HS 06/02/13 Simvastatin 20 mg PO HS 08/02/14 Ergocalciferol [Vitamin D2] 50,000 unit PO SA 04/12/18 Aspirin [ASA -] 81 mg PO DAILY tab.chew 04/13/18
[2018-04-13 16:13] VITALS: BP 135/79; PULSE 94; TEMP 98.2
[2018-04-13] MEDS ORDERED: ACETAMINOPHEN 325 MG TABLET (FP) PO ONE (17:03)
[2018-04-13] MEDS ORDERED: amLODIPine BESYLATE 5 MG TABLET (FP) ONE (17:04)
[2018-04-13] MEDS ORDERED: amLODIPine BESYLATE 5 MG TABLET (FP) PO ONE (17:06)
[2018-04-13] MEDS ORDERED: ATORVASTATIN CA 20 MG TABLET (FP) PO SCH (22:00)
[2018-04-13] MEDS ORDERED: amLODIPine BESYLATE 5 MG TABLET (FP) PO SCH (22:00)
[2018-04-13] MEDS ORDERED: ATORVASTATIN CA 10 MG TABLET (FP) PO SCH (22:00)
== END 2018-04-13 17:17 | disposition home or self-care (01) ==
LOC: JER 18:48 → JERBED 23:12
PROVIDERS: ADMIT Internal Medicine; ATTEND Internal Medicine
PROC: 3E013GC Introduction of Other Therapeutic Substance into Subcutaneous Tissue, Percutaneous Approach (ICD-10-PCS; principal; 2018-04-12)
PROC: 3E0337Z Introduction of Electrolytic and Water Balance Substance into Peripheral Vein, Percutaneous Approach (ICD-10-PCS; 2018-04-12)
DX: R07.89 Other chest pain (principal); I10 Essential (primary) hypertension; E78.5 Hyperlipidemia, unspecified; G47.30 Sleep apnea, unspecified; E66.9 Obesity, unspecified; Z68.35 Body mass index [BMI] 35.0-35.9, adult; Z91.89 Other specified personal risk factors, not elsewhere classified; Z98.84 Bariatric surgery status
CPT/HCPCS: 36415; 71045-TC-FY; 78452-TC; 80053; 80061; 82550; 82553; 83036; 83721; 83735; 84100; 84443; 84484; 85025; 85610; 93005; 93010; 93017; 93306-TC; 99285-25; A9502; G0378

== ENCOUNTER 2018-10-16 09:09 | Emergency (ER) | payer OTHER, BC ==
[2018-10-16 09:18] VITALS: BP 134/88; PULSE 89; TEMP 97.6; BMI 35.2
--- NOTE | 2018-10-16 10:06 | PDOC ---
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 Also hyperflexed his right wrist. States has persistent pain over the past 3 days since the incident occurred although is ambulatory, able to bear weight without much difficulty but has residual swelling and pain to his hartley, some mild knee swelling from an old injury that has been re- exacerbated. Reports no scalp to ligamentous injuries and has been evaluated by orthopedist in the [place]. Continued to work but has residual pain. Was instructed to come for evaluation. 10/16/18 10:27 Occurred: reports: other (3 days ago ) Pain Location: reports: lower extremity (left leg and knee), upper extremity ( right wrist ) Method of Injury: Yes: direct blow Loss of Consciousness: no loss of consciousness Past History - Travel Traveled outside of the country in the last 30 days: No Close contact w/someone who was outside of country & ill: No - Past Medical History Allergies/Adverse Reactions: Allergies Allergy/AdvReac Type Severity Reaction Status Date / Time No Known Allergies Allergy Verified 10/16/18 09:18 Home Medications: Ambulatory Orders Amlodipine Besylate [Norvasc -] 5 mg PO HS 06/02/13 Simvastatin 20 mg PO HS 08/02/14 Ergocalciferol [Vitamin D2] 50,000 unit PO SA 04/12/18 Amlodipine Besylate [Norvasc -] 5 mg PO DAILY #7 tablet 04/13/18 Aspirin [ASA -] 81 mg PO DAILY tab.chew 04/13/18 Naproxen [Naprosyn -] 500 mg PO BID #30 tablet 10/16/18 COPD: No CHF: No HTN: Yes Hypercholesterolemia: Yes - Surgical History Cardiac Surgery: No GI Surgery: No Lung Surgery: No Neurologic Surgery: No - Family Disease History Family Disease History: Heart Disease: Father - Immunization History Immunization Up to Date: Yes - Suicide/Smoking/Psychosocial Hx Smoking Status: No Smoking History: Never smoked Have you smoked in the past 12 months: No Number of Cigarettes Smoked Daily: 0 Hx Alcohol Use: No Drug/Substance Use Hx: No Substance Use Type: None Review of Systems - Review of Systems Able to Perform ROS?: Yes Is the patient limited [place] proficient: Yes Constitutional: Yes: Symptoms Reported, See HPI, Malaise HEENTM: Yes: See HPI. No: Symptoms Reported Musculoskeletal: Yes: Symptoms Reported Integumentary: Yes: Symptoms Reported, See HPI, Bruising *Physical Exam - Vital Signs Last Vital Signs Temp Pulse Resp BP Pulse Ox 97.6 F 89 18 134/88 99 10/16/18 09:13 10/16/18 09:13 10/16/18 09:13 10/16/18 09:13 10/16/18 09:13 - Physical Exam General Appearance: Yes: Nourished, Appropriately Dressed, Mild Distress HEENT: positive: [place], Normal ENT Inspection, Normal Voice, TMs Normal, Pharynx Normal Neck: positive: Supple. negative: Tender, Lymphadenopathy (R), Lymphadenopathy (L) Respiratory/Chest: positive: Lungs Clear, Normal Breath Sounds Musculoskeletal: negative: Normal Inspection, CVA Tenderness (L), Vertebral Tenderness Extremity: positive: Normal Capillary Refill, Normal Range of Motion (intact to foot), Swelling (has small resolving hematoma and bruising along tibial spine with no crepitus or stepoff), Other (right wrist with pain to lateral SPECT of right wrist, has strong flexion and extension, against resistance to all digits. Able to supinate and pronate at wrist, no tenderness along the lateral and medial ulna ,radial and ulnar pulses strong). negative: Normal Inspection ( right knee with some swelling / mild ballotment/ patella is mobile with no crepitus but has tenderness along lateral and medial aspect and posterior fossa . 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 Right wrist sprain. Thomas wrap applied to right knee, Velcro wrist splint applied, ibuprofen prescription sent to pharmacy and patient refuses work note. States his off until Thursday and feels well be well enough to return to work. *DC/Admit/Observation/Transfer Diagnosis at time of Disposition: Right knee sprain Qualifiers: Encounter type: initial encounter Involved ligament of knee: unspecified ligament Qualified Code(s): S83.91XA - Sprain of unspecified site of right knee , initial encounter Contusion Qualifiers: Encounter type: initial encounter Contusion area: lower leg Laterality: right Qualified Code(s): S80.11XA - Contusion of right lower leg, initial encounter Right wrist sprain Qualifiers: Encounter type: initial encounter Qualified Code(s): S63.501A - Unspecified sprain of right wrist, initial encounter - Discharge Dispostion Disposition: HOME Condition at time of disposition: Stable Decision to Admit order: No - Referrals Referrals: Nahomi Pope MD [Primary Care Provider] - Cody Hidalgo MD [Staff Physician] - - Patient Instructions Printed Discharge Instructions: DI for Wrist Strain, DI for Knee Sprain Additional Instructions: Rest, ice to area on and off for 15 minutes 4-6 times a day Avoid heavy lifting or exercise until pain and swelling is resolved or until further directed Keep area highly elevated to reduce swelling Use splints/Thomas wrap as directed Followup with orthopedist in one to 2 days if not improving, if significantly improved may wait one week for followup with orthopedist May use ibuprofen 2-200 mg tablets every 6 hours as needed for pain - Post Discharge Activity
== END 2018-10-16 10:00 | disposition home or self-care (01) ==
LOC: JER 09:09
PROC: 2W3CX1Z Immobilization of Right Lower Arm using Splint (ICD-10-PCS; principal; 2018-10-16)
DX: S83.8X1A Sprain of other specified parts of right knee, initial encounter (principal); S80.01XA Contusion of right knee, initial encounter; S63.501A Unspecified sprain of right wrist, initial encounter; V58.4XXA Person boarding or alighting a pick-up truck or van injured in noncollision transport accident, initial encounter; Y92.410 Unspecified street and highway as the place of occurrence of the external cause; Y99.0 Civilian activity done for income or pay; Y93.89 Activity, other specified
CPT/HCPCS: 99281-25

== ENCOUNTER 2018-12-07 23:28 | Emergency (ER) | payer BC ==
[2018-12-07 23:48] VITALS: BP 159/76; PULSE 88; TEMP 98.3; BMI 37.5
--- NOTE | 2018-12-08 01:14 | PDOC ---
History of Present Illness - General Chief Complaint: Pain Stated Complaint: STOMACH PAIN Time Seen by Provider: 12/08/18 01:11 History Source: Patient - History of Present Illness Initial Comments: 12/08/18 01:11 53 year old left shoulder pain radiating to left chest x 1 month, patient has been following his pcp Dr. Harman, reports that MRI was normal. patient now with abdominal cramps, nausea, and vomiting x 2 days. patient pain come after eating. patient reports that he had gastroenteritis while travel to [place] in July, Pmhx: hypertension, hypercholestermia, inguinal hernia, GERD PSHX: back surgery; gastric sleeve stress test/ echo [address] HARMAN Past History - Past Medical History Allergies/Adverse Reactions: Allergies Allergy/AdvReac Type Severity Reaction Status Date / Time No Known Allergies Allergy Verified 10/16/18 09:18 Home Medications: Ambulatory Orders Amlodipine Besylate [Norvasc -] 5 mg PO HS 06/02/13 Simvastatin 20 mg PO HS 08/02/14 Ergocalciferol [Vitamin D2] 50,000 unit PO SA 04/12/18 Amlodipine Besylate [Norvasc -] 5 mg PO DAILY #7 tablet 04/13/18 Aspirin [ASA -] 81 mg PO DAILY tab.chew 04/13/18 Naproxen [Naprosyn -] 500 mg PO BID #30 tablet 10/16/18 Famotidine [Pepcid -] 40 mg PO DAILY #14 tablet 12/08/18 COPD: No CHF: No HTN: Yes Hypercholesterolemia: Yes - Surgical History Cardiac Surgery: No GI Surgery: No Lung Surgery: No Neurologic Surgery: No - Immunization History Immunization Up to Date: Yes - Psycho Social/Smoking Cessation Hx Smoking Status: No Smoking History: Never smoked Have you smoked in the past 12 months: No Number of Cigarettes Smoked Daily: 0 Information on smoking cessation initiated: No Hx Alcohol Use: No Drug/Substance Use Hx: No Substance Use Type: None Review of Systems - Review of Systems Able to Perform ROS?: Yes Is the patient limited Danish proficient: No Cardiac (ROS): No: Chest Pain ABD/GI: Yes: Nausea, Vomiting, Abdominal cramping Musculoskeletal: Yes: Back Pain *Physical Exam - Vital Signs Last Vital Signs Temp Pulse Resp BP Pulse Ox 98.3 F 88 18 159/76 100 12/07/18 23:30 10/22/19 23:30 12/07/18 23:30 12/07/18 23:30 12/07/18 23:30 - Physical Exam General Appearance: Yes: Appropriately Dressed Respiratory/Chest: positive: Lungs Clear, Normal Breath Sounds Gastrointestinal/Abdominal: positive: Normal Bowel Sounds, Soft, Other (no tenderness at this tiime). negative: Tender Musculoskeletal: positive: Normal Inspection Extremity: positive: Normal Capillary Refill, Normal Inspection, Normal Range of Motion Integumentary: positive: Normal Color, Dry, Warm Neurologic: positive: Fully Oriented, Alert Heart Score/ECG Review - History History: Slightly suspicious - Electrocardiogram EKG: Normal - Age Age: 45-65 - Risk Factors Risk Factors Heart Score: Yes Hx Hypercholesterolemia, Yes Hx Hypertension Based on the list above the patient has:: 1-2 risk factors - Troponin Troponin: </= normal limit - Score Heart Score - Total: 2 - ECG Intrepretation Rhythm: Regular Rhythm Comment:: 12/08/18 01:56 NSR ED Treatment Course - LABORATORY CBC & Chemistry Diagram: 12/08/18 01:25 12/08/18 01:25 Medical Decision Making - Medical Decision Making 12/08/18 A: gastritis P: labs EKG symptoms improved after maalox dose. referred patient to GI outpatient follow up Discharge - Discharge Information Problems reviewed: Yes Clinical Impression/Diagnosis: Gastritis Qualifiers: Gastritis type: unspecified gastritis Chronicity: acute Gastritis bleeding: without bleeding Qualified Code(s): K29.00 - Acute gastritis without bleeding Condition: Critical Disposition: HOME - Additional Discharge Information Prescriptions: Famotidine [Pepcid -] 40 mg PO DAILY #14 tablet - Follow up/Referral Referrals: Nahomi Pope MD [Primary Care Provider] - Call tomorrow Martin Killian MD [Staff Physician] - Call tomorrow - Patient Discharge Instructions Patient Printed Discharge Instructions: [place] Diet Additional Instructions: follow up with a supervisor microwave as soon as possible. return to the ER for any worsening symptoms - Post Discharge Activity Work/Back to School Note: Back to Work
[2018-12-08] MEDS ORDERED: MAG HYDROX/AL HYDROX/SIMETH 30 ML UNIT-DOSE CUP PO ONE (01:22)
[2018-12-08] MEDS ORDERED: MAG HYDROX/AL HYDROX/SIMETH 30 ML UNIT-DOSE CUP ONE (01:30)
[2018-12-08 01:38] LABS: BASO % 1.2 % (0-2.0); EOS % 2.4 % (0-4.5); HEMATOCRIT 39.3 % (35.4-49); LYMPH % 35.5 % (8-40); MCH 29.8 pg (25.7-33.7); MEAN CELL VOLUME 90.1 fl (80-96); MEAN PLT VOLUME 8.9 fl (7.5-11.1); MONO % 12.8 % (3.8-10.2); NEUT % 48.1 % (42.8-82.8); PLATELET COUNT 215 K/MM3 (134-434); RBC 4.36 M/mm3 (4.00-5.60); RDW 14.1 % (11.9-15.9); WHITE BLOOD COUNT 6.5 K/mm3 (4.0-10.0)
[2018-12-08 02:08] LABS: ALBUMIN 3.8 g/dl (3.4-5.0); ALK PHOS 107 U/L (45-117); ANION GAP 6 MMOL/L (8-16); BILIRUBIN,TOTAL 1.1 mg/dL (0.2-1); BLOOD UREA NITROGEN 13.7 mg/dL (7-18); CALCIUM 8.8 mg/dL (8.5-10.1); CHLORIDE 106 mmol/L (98-107); CO2 28 mmol/L (21-32); GLUCOSE,RANDOM 92 mg/dL (74-106); LIPASE 118 U/L (73-393); SGOT/AST 20 U/L (15-37); SGPT/ALT 25 U/L (13-61); SODIUM 140 mmol/L (136-145); TOT PROT 6.9 g/dl (6.4-8.2)
--- NOTE | 2018-12-08 02:19 | PDOC ---
*Physical Exam - Vital Signs Last Vital Signs Temp Pulse Resp BP Pulse Ox 98.3 F 88 18 159/76 100 12/07/18 23:30 12/07/18 23:30 12/07/18 23:30 12/07/18 23:30 12/07/18 23:30 ED Treatment Course - LABORATORY CBC & Chemistry Diagram: 12/08/18 01:25 12/08/18 01:25 - ADDITIONAL ORDERS Additional order review: Laboratory Results 12/08/18 01:25 Sodium 140 Potassium 4.0 Chloride 106 Carbon Dioxide 28 Anion Gap 6 L BUN 13.7 Creatinine 1.0 Est GFR (CKD-EPI)AfAm 100.55 Est GFR (CKD-EPI)NonAf 86.76 Random Glucose 92 Calcium 8.8 Total Bilirubin 1.1 H AST 20 ALT 25 Alkaline Phosphatase 107 Creatine Kinase 344 H Troponin I < 0.02 Total Protein 6.9 Albumin 3.8 Lipase 118 12/08/18 01:25 RBC 4.36 MCV 90.1 MCHC 33.0 RDW 14.1 MPV 8.9 Neutrophils % 48.1 Lymphocytes % 35.5 Monocytes % 12.8 H Eosinophils % 2.4 Basophils % 1.2 - Medications Given in the ED: ED Medications Discontinued Medications Generic Name Dose Route Start Last Admin Trade Name Freq PRN Reason Stop Dose Admin Al Hydroxide/Mg Hydroxide 30 ml 12/08/18 01:22 12/08/18 01:35 Mylanta Oral Suspension - PO 12/08/18 01:23 30 ml ONCE ONE Administration Medical Decision Making - Medical Decision Making 12/08/18 02:18 Patient seen by the advanced practice provider under my direct supervision. Ancillary testing reviewed as necessary. I agree with plan as outlined by the advanced practice provider. Discharge - Discharge Information Problems reviewed: Yes Clinical Impression/Diagnosis: Gastritis Qualifiers: Gastritis type: unspecified gastritis Chronicity: acute Gastritis bleeding: without bleeding Qualified Code(s): K29.00 - Acute gastritis without bleeding Condition: Critical Disposition: HOME - Additional Discharge Information Prescriptions: Famotidine [Pepcid -] 40 mg PO DAILY #14 tablet - Follow up/Referral Referrals: Nahomi Pope MD [Primary Care Provider] - Call tomorrow Martin Killian MD [Staff Physician] - Call tomorrow - Patient Discharge Instructions Patient Printed Discharge Instructions: [place] Diet Additional Instructions: follow up with a label fuser tender as soon as possible. return to the ER for any worsening symptoms - Post Discharge Activity Work/Back to School Note: Back to Work
--- NOTE | 2018-12-08 09:54 | EKG ---
Test Reason : Blood Pressure : / mmHG Vent. Rate : 073 BPM Atrial Rate : 073 BPM P-R Int : 192 ms QRS Dur : 102 ms QT Int : 388 ms P-R-T Axes : 041 -04 029 degrees QTc Int : 427 ms NORMAL SINUS RHYTHM NORMAL ECG WHEN COMPARED WITH ECG OF 12-APR-2018 18:57, NO SIGNIFICANT CHANGE WAS FOUND Confirmed by KAL MCDOWELL MD ([id number]) on 12/08/2018 9:54:15 AM Referred By: Confirmed By:KAL MCDOWELL MD
== END 2018-12-08 03:20 | disposition home or self-care (01) ==
LOC: JER 23:28
DX: K29.00 Acute gastritis without bleeding (principal); I10 Essential (primary) hypertension; E78.00 Pure hypercholesterolemia, unspecified; K21.9 Gastro-esophageal reflux disease without esophagitis; Z98.84 Bariatric surgery status; Z79.82 Long term (current) use of aspirin
CPT/HCPCS: 36415; 80053; 82550; 82553; 83690; 84484; 85025; 93005; 93010; 99283-25

== ENCOUNTER 2019-02-06 21:59 | Emergency (ER) | payer BC ==
[2019-02-06 22:31] VITALS: TEMP 98; BMI 34.9
--- NOTE | 2019-02-07 01:22 | PDOC ---
History of Present Illness - General Chief Complaint: Pain Stated Complaint: FOOT PAIN Time Seen by Provider: 02/07/19 00:36 History Source: Patient Exam Limitations: No Limitations - History of Present Illness Initial Comments: 02/07/19 01:13 Patient is a 53 year old with pmhx HTN, HLD, removal of lumbar spinal tumor here with c/o right heel pain x1 week. 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 Pain is dull aching, 8/10, worsening with walking. He went for foot massages and pedicure with no relief of symptoms. Otherwise no injury. States that 4 months ago he started wearing a new brand of boot which he bought from the [employer] store. States that prior he had a different brand and had no issues with his feet. PMD: Dr. Pope PMHX: As above PSOCHX: neg etoh, drug, cig ALL: NKDA GENERAL/CONSTITUTIONAL: [No fever or chills. No weakness. No weight change.] MUSCULOSKELETAL: [No joint or muscle swelling or pain. No neck or back pain.] SKIN AND BREASTS: [No rash or easy bruising.] ALLERGIC/IMMUNOLOGIC: [No hives or skin allergy. No latex allergy.] GENERAL: [The patient is awake, alert, and fully oriented, in no acute distress. ] LUNGS: [Breath sounds equal, clear to auscultation bilaterally. No wheezes, and no crackles.] HEART: [Regular rate and rhythm, normal S1 and S2 without murmur, rub.] EXTREMITIES: [Normal range of motion, no edema. No clubbing or cyanosis. No cords, erythema,(+) tenderness midline right foot over the planter aspect] NEUROLOGICAL: [Cranial nerves II through XII grossly intact. Normal speech, normal gait.] SKIN: [Warm, Dry, normal turgor, no rashes or lesions noted, no cellulitis.] Past History - Past Medical History Allergies/Adverse Reactions: Allergies Allergy/AdvReac Type Severity Reaction Status Date / Time No Known Allergies Allergy Verified 02/06/19 22:31 Home Medications: Ambulatory Orders Amlodipine Besylate [Norvasc -] 5 mg PO HS 06/02/13 Simvastatin 20 mg PO HS 08/02/14 Ergocalciferol [Vitamin D2] 50,000 unit PO SA 04/12/18 Amlodipine Besylate [Norvasc -] 5 mg PO DAILY #7 tablet 04/13/18 Aspirin [ASA -] 81 mg PO DAILY tab.chew 04/13/18 Naproxen [Naprosyn -] 500 mg PO BID #30 tablet 10/16/18 Famotidine [Pepcid -] 40 mg PO DAILY #14 tablet 12/08/18 COPD: No CHF: No HTN: Yes Hypercholesterolemia: Yes - Surgical History Cardiac Surgery: No GI Surgery: No Lung Surgery: No Neurologic Surgery: No - Immunization History Immunization Up to Date: Yes - Psycho Social/Smoking Cessation Hx Smoking Status: No Smoking History: Never smoked Have you smoked in the past 12 months: No Number of Cigarettes Smoked Daily: 0 Information on smoking cessation initiated: No Hx Alcohol Use: No Drug/Substance Use Hx: No Substance Use Type: None *Physical Exam - Vital Signs Last Vital Signs Temp Pulse Resp BP Pulse Ox 98.0 F 96 H 18 131/86 99 02/06/19 22:28 02/06/19 22:28 02/06/19 22:28 02/06/19 22:28 02/06/19 22:28 Medical Decision Making - Medical Decision Making 02/07/19 01:13 Patient is a 53 year old with pmhx HTN, HLD, removal of lumbar spinal tumor here with c/o right heel pain x1 week. 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 Pain is dull aching, 8/10, worsening with walking. He went for foot massages and pedicure with no relief of symptoms. Otherwise no injury. States that 4 months ago he started wearing a new brand of boot which he bought from the police store. States that prior he had a different brand and had no issues with his feet. Symptoms consistent with plantar fasciitis XRAY right foot X-ray shows a calcified tendon at the base of the heel, I discussed the physical exam findings, ancillary test results and final diagnoses with the patient. I answered all of the patient's questions. The patient was satisfied with the care received and felt comfortable with the discharge plan and treatment plan. The Patient agrees to follow up with the primary care physician within 24-72 hours. Discharge - Discharge Information Problems reviewed: Yes Clinical Impression/Diagnosis: Plantar fasciitis, right Condition: Stable Disposition: HOME - Follow up/Referral Referrals: Nahomi Pope MD [Primary Care Provider] - - Patient Discharge Instructions Additional Instructions: Your Discharge Instructions: You must call primary care physician within 24 hours to arrange follow-up. Return to the Emergency Department with any new, persistent or worsening symptoms, for fever, chills, SOB, dizziness or any other concerning changes that may occur. You need to follow-up with a glass driller. Also need to change your shoes and get a shoe with special arch support. - Post Discharge Activity
[2019-02-07 02:26] VITALS: BP 125/84; PULSE 91
== END 2019-02-07 02:25 | disposition home or self-care (01) ==
LOC: JER 21:59
DX: M72.2 Plantar fascial fibromatosis (principal); I10 Essential (primary) hypertension; E78.5 Hyperlipidemia, unspecified; Z79.82 Long term (current) use of aspirin
CPT/HCPCS: 73630-TC-RT-FY; 99282-25

== ENCOUNTER 2019-04-24 20:45 | Emergency (ER) | payer OTHER, BC ==
[2019-04-24 20:49] VITALS: BP 174/99; PULSE 90; TEMP 98.3; BMI 35.6
--- NOTE | 2019-04-24 20:55 | PDOC ---
History of Present Illness - General Chief Complaint: Injury Stated Complaint: L LEG INJURY Time Seen by Provider: 04/24/19 20:53 History Source: Patient - History of Present Illness Occurred: reports: yesterday Severity: Yes: mild Lower Extremity Pain Location: left: ankle, leg Method of Injury: Yes: direct blow Past History - Past Medical History Allergies/Adverse Reactions: Allergies Allergy/AdvReac Type Severity Reaction Status Date / Time No Known Allergies Allergy Verified 04/24/19 20:49 Home Medications: Ambulatory Orders Amlodipine Besylate [Norvasc -] 5 mg PO HS 06/02/13 Simvastatin 20 mg PO HS 08/02/14 Ergocalciferol [Vitamin D2] 50,000 unit PO SA 04/12/18 Amlodipine Besylate [Norvasc -] 5 mg PO DAILY #7 tablet 04/13/18 Aspirin [ASA -] 81 mg PO DAILY tab.chew 04/13/18 Naproxen [Naprosyn -] 500 mg PO BID #30 tablet 10/16/18 Famotidine [Pepcid -] 40 mg PO DAILY #14 tablet 12/08/18 COPD: No CHF: No HTN: Yes Hypercholesterolemia: Yes - Surgical History Cardiac Surgery: No GI Surgery: No Lung Surgery: No Neurologic Surgery: No - Immunization History Immunization Up to Date: Yes - Psycho Social/Smoking Cessation Hx Smoking Status: No Smoking History: Never smoked Have you smoked in the past 12 months: No Number of Cigarettes Smoked Daily: 0 Hx Alcohol Use: No Drug/Substance Use Hx: No Substance Use Type: None Review of Systems - Review of Systems Musculoskeletal: Yes: Joint Pain. No: Joint Swelling *Physical Exam - Vital Signs Last Vital Signs Temp Pulse Resp BP Pulse Ox 98.3 F 90 18 174/99 H 98 04/24/19 20:47 04/24/19 20:47 04/24/19 20:47 04/24/19 20:47 04/24/19 20:47 - Physical Exam General Appearance: Yes: Appropriately Dressed. No: Apparent Distress HEENT: positive: Normal Voice Neck: positive: Supple Respiratory/Chest: negative: Respiratory Distress Extremity: positive: Other (superfical abrasion to L hartley, no swelling/ttp to L ankle) Integumentary: positive: Dry, Warm Neurologic: positive: Fully Oriented, Alert, Normal Mood/Affect Medical Decision Making - Medical Decision Making 04/24/19 20:55 Patient is a 53 year old with male, w/ h/o HTN, HLD, removal of lumbar spinal tumor, here ? LLE pain s/p work injury. Per pt, struck L leg against file cabinet at work last night. States he sustained a bruise to L leg that is healing well per patient but decided to come in because at some point started to have pain to lateral aspect of left ankle. No swelling. Able to bear weight. Patient well-appearing and stable with unremarkable exam. Dc with reassurance and [id number] pain meds as needed Discharge - Discharge Information Problems reviewed: Yes Clinical Impression/Diagnosis: Ankle contusion Qualifiers: Encounter type: initial encounter Laterality: left Qualified Code(s): S90.02XA - Contusion of left ankle, initial encounter Contusion of leg Qualifiers: Encounter type: initial encounter Laterality: left Qualified Code(s): S80.12XA - Contusion of left lower leg, initial encounter Condition: Good Disposition: HOME - Follow up/Referral Referrals: Nahomi Pope MD [Primary Care Provider] - - Patient Discharge Instructions Patient Printed Discharge Instructions: DI for Contusion Additional Instructions: There is no evidence of serious injury on exam. Take Motrin or Tylenol as needed and follow-up with your doctor - Post Discharge Activity Work/Back to School Note: Back to Work
== END 2019-04-24 21:06 | disposition home or self-care (01) ==
LOC: JERFT 20:45
DX: S90.02XA Contusion of left ankle, initial encounter (principal); S80.12XA Contusion of left lower leg, initial encounter; I10 Essential (primary) hypertension; E78.00 Pure hypercholesterolemia, unspecified
CPT/HCPCS: 99282-25

== ENCOUNTER 2019-09-26 20:26 | Observation (INO) | payer BC ==
--- NOTE | 2019-09-26 20:43 | PDOC ---
Rapid Medical Evaluation Time Seen by Provider: 09/26/19 20:39 Medical Evaluation: Allergies Allergy/AdvReac Type Severity Reaction Status Date / Time No Known Allergies Allergy Verified 04/24/19 20:49 09/26/19 20:40 Pt with PMH of HTN, presents for evaluation of a shooting pain/pressure in the back of his head and behind L eye. States the pain goes up his neck and feels like a "García horse." Exam: ambulatory, NAD, Orders: labs, IV Pt to proceed to the ER for further evaluation Discharge Disposition - Diagnosis Neck pain - Referrals - Patient Instructions - Post Discharge Activity
[2019-09-26] MEDS ORDERED: ACETAMINOPHEN 1000 MG/100 ML VIAL (NON FORMULARY) IVPB ONE (21:15)
[2019-09-26] MEDS ORDERED: ACETAMINOPHEN INJECTION 100 ML IVPB ONE (21:18)
--- NOTE | 2019-09-26 21:18 | PDOC ---
Attending Attestation - Resident Resident Name: NeryMack - ED Attending Attestation I have performed the following: I have examined & evaluated the patient, The case was reviewed & discussed with the resident, I agree w/resident's findings & plan - HPI HPI: 09/26/19 22:53 see resident hpi - Physicial Exam PE: 09/26/19 22:54 see resident exam - Medical Decision Making 09/26/19 22:54 54-year-old male with intermittent chest pain and sharp pain radiating near the left occiput for several days with elevated blood pressure Patient has no headache or neck pain at this time EKG is a sinus rhythm with no acute ST segment elevations, there are nonspecific T wave changes in multiple leads He states he did have a stress test greater than 1 year ago that he believes was normal In light of patient's morbid obesity, elevated blood pressure and chest pain will hold for observation and further evaluation 09/26/19 22:56 Discharge - Discharge Information Problems reviewed: Yes Clinical Impression/Diagnosis: Intermittent left-sided chest pain, Cephalgia, Hypertension - Follow up/Referral - Patient Discharge Instructions - Post Discharge Activity
[2019-09-26] MEDS ORDERED: amLODIPine BESYLATE 5 MG TABLET (FP) PO ONE (21:59)
--- NOTE | 2019-09-26 22:00 | PDOC ---
History of Present Illness - General Chief Complaint: Blood Pressure Problem Stated Complaint: HYPERTENSION Time Seen by Provider: 09/26/19 20:39 - History of Present Illness Initial Comments: 09/26/19 22:31 54 yo male with pmh htn and hld presents to ED for left sided neck and head pain that started yesterday. Pt explains its a cramping sensation that lasts for few seconds. Pt does not believe anything he does brings on the sensation but has come on and off about 10 times since yesterday. Pt does have some associated chest pressure that also has been coming and going but does not conicide with neck pain. Pt denies any change in vision, worsening with neck movement, nausea, vomitting, radiation to hand, loss of sensation in extremities, loss of strength in extremities. PMH: htn, hld Meds: atorvastatin amlodipine PSH: denies Allergies: denies Social: denies smoking drugs and alcohol PCP: Dr. Anderson Past History - Medical History Allergies/Adverse Reactions: Allergies Allergy/AdvReac Type Severity Reaction Status Date / Time No Known Allergies Allergy Verified 04/24/19 20:49 Home Medications: Ambulatory Orders Ergocalciferol [Vitamin D2] 50,000 unit PO SA 04/12/18 Amlodipine Besylate [Norvasc -] 5 mg PO DAILY #7 tablet 04/13/18 Atorvastatin Calcium 0 mg PO DAILY 09/26/19 COPD: No CHF: No HTN: Yes Hypercholesterolemia: Yes - Surgical History Cardiac Surgery: No GI Surgery: No Lung Surgery: No Neurologic Surgery: No - Immunization History Immunization Up to Date: Yes - Psycho-Social/Smoking History Smoking Status: No Smoking History: Never smoked Have you smoked in the past 12 months: No Number of Cigarettes Smoked Daily: 0 - Substance Abuse Hx (Audit-C & DAST Scrn) How often the patient has a drink containing alcohol: Never Score: In Men: 4 or > Positive; In Women: 3 or > Positive: 0 Screen Result (Pos requires Nsg. Audit-10AR): Negative In the last yr the pt used illegal drug/Rx for NonMed reason: No Score: Yes response is considered Positive: 0 Screen Result (Positive result requires Nsg. DAST-10): Negative Review of Systems - Review of Systems Comments:: 09/26/19 22:34 GENERAL/CONSTITUTIONAL: No fever or chills. No weakness. HEAD, EYES, EARS, NOSE AND THROAT: No change in vision. No ear pain or discharge. No sore throat. CARDIOVASCULAR:chest pain. No SOB. RESPIRATORY: No cough, wheezing, or hemoptysis. GASTROINTESTINAL: No nausea, vomiting, diarrhea or constipation. GENITOURINARY: No dysuria, frequency, or change in urination. MUSCULOSKELETAL: No joint or muscle swelling or pain. Neck pain. SKIN: No rash NEUROLOGIC: Headache. No vertigo, loss of consciousness, or change in strength/sensation. HEMATOLOGIC/LYMPHATIC: No anemia, easy bleeding, or history of blood clots. ALLERGIC/IMMUNOLOGIC: No hives or skin allergy. *Physical Exam - Vital Signs Last Vital Signs Temp Pulse Resp BP Pulse Ox 98.6 F 91 H 19 140/108 H 99 09/26/19 20:40 09/26/19 20:40 09/26/19 20:40 09/26/19 20:40 09/26/19 20:40 - Physical Exam 09/26/19 22:36 GENERAL: Awake, alert, and fully oriented, in no acute distress HEAD: No signs of trauma, normocephalic, atraumatic EYES: EOMI, sclera anicteric, conjunctiva clear ENT: Auricles normal inspection, hearing grossly normal, nares patent, oropharynx clear without exudates. Moist mucosa NECK: Normal ROM, supple, no lymphadenopathy, JVD, or masses LUNGS: No distress, speaks full sentences, clear to auscultation bilaterally HEART: Regular rate and rhythm, normal S1 and S2, no murmurs, rubs or gallops, peripheral pulses normal and equal bilaterally. ABDOMEN: Soft, nontender, normoactive bowel sounds. No guarding, no rebound. No masses EXTREMITIES : Normal inspection, Normal range of motion, no edema. No clubbing or cyanosis. NEUROLOGICAL: Cranial nerves II through XII intact. Normal speech, normal gait, no focal sensorimotor deficits. Finger to nose intact. BETH intact. SKIN: Warm, Dry, normal turgor, no rashes or lesions noted Heart Score/ECG Review - History History: Moderately suspicious - Electrocardiogram EKG: Non specific repolarization disturbance - Age Age: 45-65 - Risk Factors Risk Factors Heart Score: Yes Hx Hypercholesterolemia, Yes Hx Hypertension Based on the list above the patient has:: 1-2 risk factors - Troponin Troponin: </= normal limit - Score Heart Score - Total: 4 - ECG Impressions Comment:: 09/26/19 23:48 Normal sinus rhythm at 80 bpm Normal OR QRS and QT intervals Nonspecific T wave changes in III and aVF similar to old EKG of 11/2018 ED Treatment Course - LABORATORY CBC & Chemistry Diagram: 09/26/19 22:03 09/26/19 22:05 - Medications Given in the ED: ED Medications Discontinued Medications Generic Name Dose Route Start Last Admin Trade Name Gisselle PRN Reason Stop Dose Admin Acetaminophen 1,000 mg 09/26/19 21:15 09/26/19 21:47 Ofirmev Injection - IVPB 09/26/19 21:16 1,000 mg ONCE ONE Administration Medical Decision Making - Medical Decision Making 09/26/19 22:10 54 year old htn hld male coming in with left sided neck pain that is going on since yesterday. Will get ACS rule out with chest xray, ekg, cardiac enzymes, cbc, cmp. Will admit tele obs. 09/26/19 23:46 Pt HPI ED course and plan was run by resident Dr. Sanchez. Pt will be admitted to Dr. Tsai Discharge - Discharge Information Problems reviewed: Yes Clinical Impression/Diagnosis: Intermittent left-sided chest pain, Cephalgia, Hypertension, ACS (acute coronary syndrome) Condition: Stable - Admission Yes - Follow up/Referral - Patient Discharge Instructions - Post Discharge Activity
[2019-09-26] MEDS ORDERED: amLODIPine BESYLATE 5 MG TABLET (FP) ONE (22:13)
[2019-09-26 22:16] LABS: BASO % 0.8 % (0-2.0); EOS % 1.6 % (0-4.5); HEMATOCRIT 40.5 % (35.4-49); HEMOGLOBIN 13.6 GM/dL (11.7-16.9); LYMPH % 31.8 % (8-40); MCH 30.7 pg (25.7-33.7); MCHC 33.7 g/dl (32.0-35.9); MEAN CELL VOLUME 91.1 fl (80-96); MEAN PLT VOLUME 8.6 fl (7.5-11.1); MONO % 11.1 % (3.8-10.2); NEUT % 54.7 % (42.8-82.8); PLATELET COUNT 231 K/MM3 (134-434); RBC 4.44 M/mm3 (4.00-5.60); RDW 13.6 % (11.9-15.9); WHITE BLOOD COUNT 6.7 K/mm3 (4.0-10.0)
[2019-09-26 22:32] LABS: INR 1.07 (0.83-1.09); PROTHROMBIN TIME (PATIENT) 12.6 SEC (9.7-13.0)
[2019-09-26 22:43] LABS: ALBUMIN 3.9 g/dl (3.4-5.0); ALK PHOS 78 U/L (45-117); ANION GAP 9 MMOL/L (8-16); BILIRUBIN,TOTAL 1.1 mg/dL (0.2-1); BLOOD UREA NITROGEN 9.5 mg/dL (7-18); CALCIUM 8.8 mg/dL (8.5-10.1); CHLORIDE 104 mmol/L (98-107); CO2 27 mmol/L (21-32); CREATININE 1.2 mg/dL (0.55-1.3); GLUCOSE,RANDOM 90 mg/dL (74-106); POTASSIUM 3.6 mmol/L (3.5-5.1); SGOT/AST 18 U/L (15-37); SGPT/ALT 20 U/L (13-61); SODIUM 140 mmol/L (136-145); TOT PROT 7.3 g/dl (6.4-8.2)
[2019-09-27] MEDS ORDERED: TICAGRELOR 90 MG TABLET PO ONE (01:20)
--- NOTE | 2019-09-27 01:36 | PN ---
Teaching Attending Note Name of Resident: Emmanuel Batista ATTENDING PHYSICIAN STATEMENT I saw and evaluated the patient. I reviewed the resident's note and discussed the case with the resident. I agree with the resident's findings and plan as documented. SUBJECTIVE: 54 years old M with PMH of HTN presented to ED with left sided neck pain and headache on his back - left occipital region. He states that its muscle cramping like sensation for few seconds. he also c/o chest pain - burning like , retro sternal. pain is intermittent for a long time and he attributes this pain to GERD he denies SOB, nausea,vomiting,vision changes, fever, palpitations, dizziness, SOB OBJECTIVE: Last Vital Signs Temp Pulse Resp BP Pulse Ox 98.6 F 81 20 112/77 99 09/27/19 00:41 09/27/19 00:41 09/27/19 00:41 09/27/19 00:41 09/27/19 00:41 GENERAL: Awake, alert, and fully oriented, in no acute distress HEAD: No signs of trauma, normocephalic, atraumatic EYES: EOMI, sclera anicteric, conjunctiva clear ENT: Auricles normal inspection, hearing grossly normal, nares patent, oropharynx clear without exudates. Moist mucosa NECK: Normal ROM, supple, no lymphadenopathy, JVD, or masses LUNGS: No distress, speaks full sentences, clear to auscultation bilaterally HEART: Regular rate and rhythm, normal S1 and S2, no murmurs, rubs or gallops, peripheral pulses normal and equal bilaterally. ABDOMEN: Soft, nontender, normoactive bowel sounds. No guarding, no rebound. No masses EXTREMITIES : Normal inspection, Normal range of motion, no edema. No clubbing or cyanosis. NEUROLOGICAL: Cranial nerves II through XII intact. Normal speech, normal gait, no focal sensorimotor deficits. Finger to nose intact. BETH intact. SKIN: Warm, Dry, normal turgor, no rashes or lesions noted EKG: NSR there are nonspecific T wave changes in multiple leads ASSESSMENT AND PLAN: chest pain r/o ACS possibly due to GERD neck pain and left sided headache likely musculoskeletal Observation to tele Give 1 dose of ASA 325 now continue with ASA 81 ECHO tylenol for pain - headache and neck pain serial cardiac enzymes and EKH HTN- controlled. resume home meds PPI resume rest of home meds HBa1c, lipid panel DVt ppx
[2019-09-27] MEDS ORDERED: PANTOPRAZOLE SODIUM 40 MG VIAL IVPUSH ONE (02:56)
[2019-09-27] MEDS ORDERED: ASPIRIN 81 MG CHEWABLE TABLETS PO ONE (03:23)
[2019-09-27] MEDS ORDERED: HEPARIN NA (PORCINE) 5,000 UNITS/ML 1ML VIAL ONE (06:23)
[2019-09-27] MEDS: HEPARIN NA (PORCINE) 5,000 UNITS/ML 1ML VIAL SQ SCH ×2 (06:36→13:35)
--- NOTE | 2019-09-27 07:28 | HP ---
CHIEF COMPLAINT: SPASM IN OCCIPUT X 24 hrs PCP: HISTORY OF PRESENT ILLNESS: Patient is a 54yo M with a PMHx of hypertension and ?GERD now complaining of sudden onset spasms in the occipital region x 24hrs, stable, limited occiput, usually works long hours but off for the past couple of days b4 onset of sympto m. No assoc SOB, cough, palpitations, leg swelling, dizziness, VERMA, seizures, confusion, hearing deficit, LOC or wheezing but there is a Hx of GERD with burning pain radiating to neck and back as per patient. Was on unknown meds for GERD but d/c because it was not helpful. Not related to food, no known relieving or aggravating factor. Patient denies N/V/ diarrhea and constipation. Also denies hx of stroke, OH, bleeding, clots, rash, bites or trauma. 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 Surgical repair being planned FHx: Hx of heart attack in grandmother Social History: Has insurance. Lives with his and going through a divorce/custody spann of youngest son. Has insurance, works in [employer] and works long hours Smoking:None Alcohol:None Drugs:None Prevention care: No hx of colonoscopy. Pt encouraged to get one. Does not take flu shot, fears it might make him sick Allergies: None to food, meds or latex HOME MEDICATIONS: Home Medications Medication Instructions Recorded Ergocalciferol [Vitamin D2] 50,000 unit PO SA 04/12/18 Amlodipine Besylate [Norvasc -] 5 mg PO DAILY #7 tablet 04/13/18 Atorvastatin Calcium 0 mg PO DAILY 09/26/19 REVIEW OF SYSTEMS None except as noted above Vital Signs - 24 hr 09/26/19 09/26/19 09/26/19 20:40 22:12 22:54 Temperature 98.6 F Pulse Rate 91 H Pulse Rate [ 82 77 Radial] Respiratory 19 20 18 Rate Blood Pressure 140/108 H Blood Pressure 142/99 126/92 [Left Arm] O2 Sat by Pulse 99 99 99 Oximetry (%) 09/27/19 09/27/19 09/27/19 00:41 04:41 05:10 Temperature 98.6 F 98.6 F Pulse Rate Pulse Rate [ 81 71 Radial] Respiratory 20 18 Rate Blood Pressure Blood Pressure 112/77 124/90 [Left Arm] O2 Sat by Pulse 99 99 99 Oximetry (%) 09/27/19 06:15 Temperature 97.9 F Pulse Rate Pulse Rate [ 71 Radial] Respiratory 17 Rate Blood Pressure Blood Pressure 103/72 [Left Arm] O2 Sat by Pulse 96 Oximetry (%) PHYSICAL EXAMINATION GENERAL: Awake, alert, and fully oriented, in mild discomfort. HEAD: Normal with no signs of trauma. EYES: Pupils equal, round and reactive to light, extraocular movements intact, sclera anicteric, conjunctiva clear. Photophobia +. Fundoscopy done but limited. Patient could not withstand the light NECK: Normal range of motion, supple without lymphadenopathy LUNGS: Vesicular breath sounds present and equal b/l, o wheezes, and no crackles. No obvious sign of respiratory distress HEART: Regular rate and rhythm, normal S1 and S2 without murmur, rub or gallop. ABDOMEN: Soft, nontender, full, normoactive bowel sounds, no masses. No hepatomegaly or splenomegaly. MUSCULOSKELETAL: Limited flexion of lt knee. Bandage over left knee due to ligament rupture UPPER EXTREMITIES: 2+ pulses, warm, well-perfused. No peripheral edema. Power 5/5 LOWER EXTREMITIES: 2+ pulses, warm, well-perfused. No peripheral edema. Power 5/5 NEUROLOGICAL: Cranial nerves II-XII intact. Normal speech. Power 5/5 on b/l U/L limb including Left LL PSYCHIATRIC: Cooperative. Good eye contact. Appropriate mood and affect. SKIN: Warm, dry. Laboratory Results - last 24 hr 09/26/19 09/26/19 09/26/19 22:03 22:03 22:03 WBC 6.7 RBC 4.44 Hgb 13.6 Hct 40.5 MCV 91.1 MCH 30.7 MCHC 33.7 RDW 13.6 Plt Count 231 MPV 8.6 Absolute Neuts (auto) 3.7 Neutrophils % 54.7 Lymphocytes % 31.8 Monocytes % 11.1 H Eosinophils % 1.6 Basophils % 0.8 Nucleated RBC % 0 PT with INR 12.60 INR 1.07 Sodium Potassium Chloride Carbon Dioxide Anion Gap BUN Creatinine Est GFR (CKD-EPI)AfAm Est GFR (CKD-EPI)NonAf Random Glucose Calcium Total Bilirubin AST ALT Alkaline Phosphatase Creatine Kinase Creatine Kinase Index CK-MB (CK-2) Troponin I Total Protein Albumin Blood Type O POSITIVE Antibody Screen Negative 09/26/19 09/27/19 22:05 04:30 WBC RBC Hgb Hct MCV MCH MCHC RDW Plt Count MPV Absolute Neuts (auto) Neutrophils % Lymphocytes % Monocytes % Eosinophils % Basophils % Nucleated RBC % PT with INR INR Sodium 140 Potassium 3.6 Chloride 104 Carbon Dioxide 27 Anion Gap 9 BUN 9.5 Creatinine 1.2 Est GFR (CKD-EPI)AfAm 80.10 Est GFR (CKD-EPI)NonAf 69.11 Random Glucose 90 Calcium 8.8 Total Bilirubin 1.1 H AST 18 ALT 20 Alkaline Phosphatase 78 Creatine Kinase 247 Creatine Kinase Index 0.4 CK-MB (CK-2) 1.2 Troponin I < 0.02 < 0.02 Total Protein 7.3 Albumin 3.9 Blood Type Antibody Screen ASSESSMENT/PLAN: Patient is a 54yo M with a PMHx of hypertension and ?GERD now complaining of sudden onset spasms in the occipital region x 24 hrs. #CHEST PAIN TO R/O NSTEMI and GERD Hx of substernal chest pain not related to food, position or meal times Burning but not supportive of NSTEMI Radiates to the throat and back EKG 1/[address] depression and none specific T wave inversion not different from last known baseline EKG. Give ASA 325 now, then ASA 81mg daily Trend cardiac enzymes ECHO Tylenol for neck pain and headache Lipid panel Protonix 40mg daily Stress test in the morning HBa1c to screen for DM #HTN: BP control: Continue amlodipine 5mg daily I will educate patient in the importance of medication adherence and consequence of improper dosing Continue BP monitoring Patient to follow-up with PCP on discharge for continous and optimal BP control # HYPERLIPIDEMIA: Hx of HLD Patient on atorvastatin Known HTN F/U with PCP # LEFT KNEE INJURY: Hx of trauma Limited flexion Braces over knee Surgery being plan F/U with orthopedist on D/C # FEN: NPO Continue to monitor Electrolytes and replete prn Low sodium, low fat diet considering HTN status: # DISPOSITION: Admit to tele for observation DVT prophylaxis: Levonox 40mg tid F/U order results and respond prn Visit type - Emergency Visit Emergency Visit: Yes ED Registration Date: 09/26/19 Care time: The patient presented to the Emergency Department on the above date and was hospitalized for further evaluation of their emergent condition. - New Patient This patient is new to me today: Yes Date on this admission: 09/27/19 - Critical Care Critical Care patient: No ATTENDING PHYSICIAN STATEMENT I saw and evaluated the patient. I reviewed the resident's note and discussed the case with the resident. I agree with the resident's findings and plan as documented. SUBJECTIVE: OBJECTIVE: ASSESSMENT AND PLAN:
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
[2019-09-27] MEDS ORDERED: ASPIRIN COATED 81 MG TABLET.EC PO SCH (10:00)
[2019-09-27] MEDS ORDERED: CLOPIDOGREL BISULFATE 75 MG TABLET (FP) PO SCH (10:00)
[2019-09-27] MEDS ORDERED: amLODIPine BESYLATE 5 MG TABLET (FP) PO SCH (10:00)
[2019-09-27] MEDS ORDERED: METOPROLOL TARTRATE 25 MG TABLET (FP) PO SCH (10:00)
[2019-09-27] MEDS ORDERED: ENOXAPARIN NA (PORCINE) 120 MG/0.8 ML DISP.SYRIN SQ SCH (10:00)
[2019-09-27] MEDS ORDERED: TICAGRELOR 90 MG TABLET PO SCH (10:00)
[2019-09-27] MEDS ORDERED: ASPIRIN COATED 81 MG TABLET.EC ONE (10:05)
[2019-09-27] MEDS ORDERED: amLODIPine BESYLATE 5 MG TABLET (FP) ONE (10:05)
--- NOTE | 2019-09-27 10:17 | ECHO ---
Name: ЮЛИЯ LUPE Exam:Adult Echocardiogram Study Date: 09/27/2019 09:35 AM Age: 54 yrs Reason For Study: Chest pain Height: 73 in Weight: 270 lb BSA: 2.4 m2 MMode/2D Measurements & Calculations IVSd: 0.99 cm Ao root diam: 3.0 cm LVIDd: 5.4 cm LA dimension: 3.6 cm LVIDs: 2.9 cm LVPWd: 0.97 cm EDV(Teich): 141.4 ml LVOT diam: 2.0 cm ESV(Teich): 32.8 ml LAV (MOD-bp): 50.9 ml Doppler Measurements & Calculations MV E max sixto: 45.4 cm/sec Ao V2 max: 108.6 cm/sec MV A max sixto: 53.1 cm/sec Ao max P.7 mmHg MV E/A: 0.86 MV dec time: 0.18 sec KEENAN(V,D): 2.7 cm2 LV V1 max P.8 mmHg MR max sixto: 353.8 cm/sec LV V1 max: 97.5 cm/sec MR max P.7 mmHg TR max sixto: 181.4 cm/sec PA V2 max: 99.1 cm/sec TR max P.2 mmHg PA max P.9 mmHg Med Peak E' Sixto: 8.2 cm/sec PI Vmax: 122.2 cm/sec Med E/e': 5.6 Lat Peak E' Sixto: 8.9 cm/sec Lat E/e': 5.1 Procedure A two-dimensional transthoracic echocardiogram with color flow and Doppler was performed. The patient was in normal sinus rhythm during the exam. Left Ventricle The left ventricular size, thickness and function are normal. Ejection Fraction = 65%. Grade I diasto lic dysfunction, (abnormal relaxation pattern). Right Ventricle The right ventricle is not well visualized. Atria Normal left and right atrial size and function. Mitral Valve There is mild mitral valve thickening. There is mild mitral regurgitation. Tricuspid Valve The tricuspid valve is not well visualized, but is grossly normal. There is trace tricuspid regurgita tion. There was insufficient TR detected to calculate RV systolic pressure. Aortic Valve The aortic valve is trileaflet. There is mild aortic valve thickening. No hemodynamically significant valvular aortic stenosis. Pulmonic Valve The pulmonic valve is not well visualized. Great Vessels The aortic root is normal size. Pericardium/Pleura There is no pericardial effusion. Interpretation Summary The left ventricular size, thickness and function are normal The right ventricle is not well visualized. Normal left and right atrial size and function. There is mild mitral valve thickening. There is mild mitral regurgitation. There is trace tricuspid regurgitation. There was insufficient TR detected to calculate RV systolic pressure. No hemodynamically significant valvular aortic stenosis. Grade I diastolic dysfunction, (abnormal relaxation pattern). MD Aakash Quinteros 09/27/2019 10:17 AM
--- NOTE | 2019-09-27 10:32 | EKG ---
Test Reason : Blood Pressure : / mmHG Vent. Rate : 080 BPM Atrial Rate : 080 BPM P-R Int : 184 ms QRS Dur : 104 ms QT Int : 378 ms P-R-T Axes : 045 005 048 degrees QTc Int : 435 ms NORMAL SINUS RHYTHM NONSPECIFIC T WAVE ABNORMALITY ABNORMAL ECG WHEN COMPARED WITH ECG OF 08-DEC-2018 01:51, NO SIGNIFICANT CHANGE WAS FOUND Confirmed by MD Quinteros Edward ([id number]) on 09/27/2019 10:32:21 AM Referred By: Confirmed By:Aakash Quinteros MD
[2019-09-27 11:44] VITALS: BMI 36.1
--- NOTE | 2019-09-27 11:49 | CON.CARD ---
Consult Consult Specialty:: cardiology Reason for Consultation:: head ache; chest pain - History of Present Illness Chief Complaint: Pt a&ox3; asymptomatic except for headache, neck pain History of Present Illness: Mr. Washington is a 54-year-old black male with PMHx HTN, HLD, borderline DM, obesity (? 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 Patient has no headache or neck pain at this time. EKG is sinus rhythm with no acute ST segment elevations, there are nonspecific T wave changes in multiple leads. Pt had a stress MIBI 03/2018 here: no ischemia Never smoked; no alcohol or illicit drugs Family Hx: PMD: Dr. Nahomi Pope - History Source History Provided By: Patient, Medical Record Limitations to Obtaining History: No Limitations - Past Medical History Cardio/Vascular: Yes: HTN Pulmonary: Yes: Sleep Apnea (rule out) - Past Surgical History Past Surgical History: Yes: Bariatric Surgery (2014) - Alcohol/Substance Use Hx Alcohol Use: No - Smoking History Smoking history: Never smoked Have you smoked in the past 12 months: No Aproximately how many cigarettes per day: 0 Home Medications - Allergies Allergies/Adverse Reactions: Allergies Allergy/AdvReac Type Severity Reaction Status Date / Time No Known Allergies Allergy Verified 04/24/19 20:49 - Home Medications Home Medications: Ambulatory Orders Ergocalciferol [Vitamin D2] 50,000 unit PO SA 04/12/18 Amlodipine Besylate [Norvasc -] 5 mg PO DAILY #7 tablet 04/13/18 Atorvastatin Calcium 0 mg PO DAILY 09/26/19 - Risk Factors Known Risk Factors: Yes: Age, Diabetes Mellitus, Gender, Hypercholesterolemia, Hypertension, Physical Inactivity, Race. No: Smoking Vital Signs: Vital Signs Temperature 98 F 09/27/19 11:30 Pulse Rate 85 09/27/19 11:30 Respiratory Rate 18 09/27/19 11:30 Blood Pressure 139/84 09/27/19 11:30 O2 Sat by Pulse Oximetry (%) 98 09/27/19 11:44 Constitutional: Yes: Calm Eyes: Yes: WNL HENT: Yes: WNL - Other Data Labs, Other Data: CBC, BMP 09/26/19 22:03 09/26/19 22:05 INR, PTT INR 1.07 (0.83-1.09) 09/26/19 22:03 Troponin, BNP 09/26/19 09/27/19 22:05 04:30 Troponin I < 0.02 < 0.02 Troponin, BNP 09/26/19 09/27/19 22:05 04:30 Troponin I < 0.02 < 0.02 Assessment/Plan Head pain Atypical chest discomfort, unchanged for the past several months. HTN HLD borderline DM obesity sedentary Stress MIBI 03/2018: no ischemia REC: CT head; f/u headache Serial TNi and EKG ECHO for LVEF, wall thickness and motion; valve status; chamber sizes Fasting lipids and glucose; TSH; HGBA1c Serial BP checks Dietary consult Addendum: TNI < 0.02 x 2. ECHO: normal LVEF; abnormal diastolic compliance. EKG: NSR; nonspecific T wave changes. BP WNL Neuro w/u pending. From a cardiac perspective, pt may be followed as an outpatient in our office.
[2019-09-27 14:59] LABS: CHOLESTEROL 154 mg/dL (50-200); HDL CHOLESTEROL 46 mg/dL (40-60); LDL CHOLESTEROL (ONLY SJRH) 96 mg/dL (5-100); N-TERMINAL BNP 7.2 pg/ml (5-125); TRIGLYCERIDES 76 mg/dL (0-150)
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
[2019-09-27 18:29] VITALS: BP 129/80; PULSE 85; TEMP 97.8
[2019-09-27] MEDS ORDERED: PT OWN MED DRAWER 7, Y5N ONE (18:40)
[2019-09-27] MEDS ORDERED: ATORVASTATIN CA 10 MG TABLET (FP) PO SCH (22:00)
[2019-09-27] MEDS ORDERED: ATORVASTATIN CA 80 MG TABLET (FP) PO SCH (22:00)
[2019-09-27] MEDS ORDERED: INDOMETHACIN 25 MG CAPSULE PO SCH (22:00)
--- NOTE | 2019-09-28 13:17 | EKG ---
Test Reason : Blood Pressure : / mmHG Vent. Rate : 069 BPM Atrial Rate : 069 BPM P-R Int : 204 ms QRS Dur : 102 ms QT Int : 380 ms P-R-T Axes : 045 -07 049 degrees QTc Int : 407 ms NORMAL SINUS RHYTHM NONSPECIFIC T WAVE ABNORMALITY ABNORMAL ECG WHEN COMPARED WITH ECG OF 26-SEP-2019 22:17, NO SIGNIFICANT CHANGE WAS FOUND Confirmed by MD MCCULLOUGH PENG ([id number]) on 09/28/2019 1:16:39 PM Referred By: Confirmed By:CONCETTA MCCULLOUGH MD
== END 2019-09-27 19:15 | disposition home or self-care (01) ==
LOC: JER 20:26 → JERBED 22:59 → OBSVTOIN 09-27 00:41 → INTOOBSV 09-27 00:41 → J4W 09-27 11:30
PROVIDERS: ADMIT Internal Medicine; ATTEND Internal Medicine
PROC: 3E023GC Introduction of Other Therapeutic Substance into Muscle, Percutaneous Approach (ICD-10-PCS; principal; 2019-09-26)
PROC: 3E033GC Introduction of Other Therapeutic Substance into Peripheral Vein, Percutaneous Approach (ICD-10-PCS; 2019-09-26)
DX: I10 Essential (primary) hypertension (principal); E78.5 Hyperlipidemia, unspecified; I24.9 Acute ischemic heart disease, unspecified; R51 Headache; R73.03 Prediabetes; E66.01 Morbid (severe) obesity due to excess calories; Z68.36 Body mass index [BMI] 36.0-36.9, adult; Z72.89 Other problems related to lifestyle; Z98.84 Bariatric surgery status
CPT/HCPCS: 36415; 71045-TC-FY; 72125-TC; 80053; 80061; 82550; 82553; 83036; 83721; 83880; 84443; 84484; 85025; 85610; 86850; 86900; 86901; 93005; 93010; 93306-TC; 99285-25; G0378; J0131; J1644; U0003

== ENCOUNTER 2020-03-15 12:47 | Emergency (ER) | payer OTHER, BC ==
[2020-03-15 12:58] VITALS: BP 155/98; PULSE 100; BMI 35.6
[2020-03-15] MEDS ORDERED: NAPROXEN 500 MG TABLET PO ONE (13:56)
[2020-03-15] MEDS ORDERED: METHOCARBAMOL 500 MG TABLET PO ONE (13:56)
[2020-03-15] MEDS ORDERED: METHOCARBAMOL 500 MG TABLET ONE (13:57)
[2020-03-15] MEDS ORDERED: NAPROXEN 500 MG TABLET ONE (13:57)
== END 2020-03-15 14:13 | disposition home or self-care (01) ==
LOC: JERFT 12:47
PROC: 2W3DX1Z Immobilization of Left Lower Arm using Splint (ICD-10-PCS; principal; 2020-03-15)
DX: M25.521 Pain in right elbow (principal); S63.502A Unspecified sprain of left wrist, initial encounter; S46.911A Strain of unspecified muscle, fascia and tendon at shoulder and upper arm level, right arm, initial encounter
CPT/HCPCS: 73030-TC-RT-FY; 73070-TC-RT-FY; 73110-TC-LT-FY; 73562-TC-RT-FY; 99285-25

== ENCOUNTER 2020-05-22 20:14 | Emergency (ER) | payer BC ==
[2020-05-22 20:20] VITALS: BP 133/96; PULSE 98; TEMP 97.2; BMI 35.9
[2020-05-22] MEDS ORDERED: ASPIRIN 81 MG CHEWABLE TABLETS PO ONE (21:36)
[2020-05-22] MEDS ORDERED: ACETAMINOPHEN 500 MG TABLET (FP) PO ONE (21:36)
[2020-05-22] MEDS ORDERED: ACETAMINOPHEN 500 MG TABLET (FP) ONE (22:22)
[2020-05-22] MEDS ORDERED: KETOROLAC TROMETHAMINE 30 MG/1 ML VIAL IM ONE (22:26)
[2020-05-22] MEDS ORDERED: ASPIRIN 81 MG CHEWABLE TABLETS ONE (22:27)
[2020-05-22] MEDS ORDERED: KETOROLAC TROMETHAMINE 15 MG/ML VIAL ONE (22:28)
[2020-05-22 22:58] LABS: BASO % 0.9 % (0-2.0); EOS % 1.2 % (0-4.5); HEMATOCRIT 41.2 % (35.4-49); HEMOGLOBIN 13.9 GM/dL (11.7-16.9); MCH 30.7 pg (25.7-33.7); MCHC 33.8 g/dl (32.0-35.9); MEAN CELL VOLUME 91.1 fl (80-96); MEAN PLT VOLUME 9.4 fl (7.5-11.1); MONO % 11.8 % (3.8-10.2); NEUT % 52.1 % (42.8-82.8); PLATELET COUNT 251 K/MM3 (134-434); RBC 4.52 M/mm3 (4.00-5.60); RDW 13.9 % (11.9-15.9); WHITE BLOOD COUNT 6.8 K/mm3 (4.0-10.0)
[2020-05-22 23:05] LABS: PROTHROMBIN TIME (PATIENT) 12.3 SEC (9.7-13.0)
[2020-05-22 23:08] LABS: ACTIVATED PTT 30.3 SECONDS (25.2-36.5)
[2020-05-22 23:23] LABS: CHLORIDE 106 mmol/L (98-107); POTASSIUM 4.1 mmol/L (3.5-5.1); SODIUM 140 mmol/L (136-145)
[2020-05-22 23:25] LABS: ANION GAP 6 MMOL/L (8-16); BLOOD UREA NITROGEN 12.5 mg/dL (7-18); CALCIUM 9.3 mg/dL (8.5-10.1); CO2 28 mmol/L (21-32); GLUCOSE,RANDOM 100 mg/dL (74-106); MAGNESIUM 2.5 mg/dL (1.8-2.4)
[2020-05-22 23:26] LABS: ALBUMIN 4.1 g/dl (3.4-5.0)
[2020-05-22 23:28] LABS: CREATININE 1.1 mg/dL (0.55-1.3); SGPT/ALT 25 U/L (13-61)
[2020-05-22 23:29] LABS: SGOT/AST 19 U/L (15-37)
[2020-05-22 23:30] LABS: BILIRUBIN,TOTAL 0.8 mg/dL (0.2-1); TOT PROT 7.8 g/dl (6.4-8.2)
[2020-05-22 23:31] LABS: ALK PHOS 104 U/L (45-117)
== END 2020-05-23 00:28 | disposition home or self-care (01) ==
LOC: JER 20:14
PROC: 3E0233Z Introduction of Anti-inflammatory into Muscle, Percutaneous Approach (ICD-10-PCS; principal; 2020-05-22)
DX: R07.9 Chest pain, unspecified (principal)
CPT/HCPCS: 36415; 71046-TC-FY; 80053; 82550; 82553; 83735; 84484; 85025; 85610; 85730; 93005; 93010; 99285-25

== ENCOUNTER 2020-09-30 22:41 | Emergency (ER) | payer BC ==
[2020-09-30 23:11] VITALS: BMI 35.6
[2020-10-01] MEDS ORDERED: LACTATED RINGERS SOLUTION 1000 ML INFUS.BAG IV ONE (00:21)
[2020-10-01] MEDS ORDERED: ONDANSETRON 4 MG/2 ML VIAL IVPUSH ONE (00:21)
[2020-10-01] MEDS ORDERED: ACETAMINOPHEN 1000 MG/100 ML VIAL (NON FORMULARY) IVPB ONE (00:22)
[2020-10-01] MEDS ORDERED: LIDOCAINE 5% TOPICAL PATCH TP ONE (00:23)
[2020-10-01] MEDS ORDERED: MAG HYDROX/AL HYDROX/SIMETH 30 ML UNIT-DOSE CUP PO ONE (00:26)
[2020-10-01] MEDS ORDERED: SUCRALFATE 1 GM TABLET (FP) PO SCH (00:30)
[2020-10-01] MEDS ORDERED: SUCRALFATE 1 GM TABLET (FP) ONE (00:42)
[2020-10-01] MEDS ORDERED: ONDANSETRON 4 MG/2 ML VIAL ONE (00:43)
[2020-10-01] MEDS ORDERED: ACETAMINOPHEN INJECTION 100 ML IVPB ONE (00:43)
[2020-10-01] MEDS ORDERED: LIDOCAINE 5% TOPICAL PATCH ONE (00:43)
[2020-10-01] MEDS ORDERED: MAG HYDROX/AL HYDROX/SIMETH 30 ML UNIT-DOSE CUP ONE (00:44)
[2020-10-01 00:46] LABS: BASO % 0.8 % (0-2.0); EOS % 1.9 % (0-4.5); HEMATOCRIT 38.9 % (35.4-49); HEMOGLOBIN 13.5 GM/dL (11.7-16.9); LYMPH % 34.2 % (8-40); MCH 31.3 pg (25.7-33.7); MCHC 34.7 g/dl (32.0-35.9); MEAN CELL VOLUME 90.1 fl (80-96); MEAN PLT VOLUME 8.2 fl (7.5-11.1); MONO % 11.2 % (3.8-10.2); NEUT % 51.9 % (42.8-82.8); PLATELET COUNT 220 10^3/uL (134-434); RBC 4.31 M/mm3 (4.00-5.60); RDW 13.6 % (11.9-15.9)
[2020-10-01 01:08] LABS: CHLORIDE 107 mmol/L (98-107); SODIUM 139 mmol/L (136-145)
[2020-10-01 01:12] LABS: ALBUMIN 3.7 g/dl (3.4-5.0); ANION GAP 6 MMOL/L (8-16); BLOOD UREA NITROGEN 9.4 mg/dL (7-18); CALCIUM 8.2 mg/dL (8.5-10.1); CO2 26 mmol/L (21-32)
[2020-10-01 01:13] LABS: GLUCOSE,RANDOM 107 mg/dL (74-106)
[2020-10-01 01:15] LABS: SGOT/AST 19 U/L (15-37); SGPT/ALT 22 U/L (13-61)
[2020-10-01 01:16] LABS: BILIRUBIN,TOTAL 0.7 mg/dL (0.2-1)
[2020-10-01 01:20] LABS: ALK PHOS 85 U/L (45-117)
[2020-10-01 01:58] VITALS: BP 134/70; PULSE 72; TEMP 98.3
[2020-10-01] MEDS ORDERED: LIDOCAINE PATCH REMOVAL MC ONE (13:00)
== END 2020-10-01 03:14 | disposition home or self-care (01) ==
LOC: JER 22:41
PROC: 3E0333Z Introduction of Anti-inflammatory into Peripheral Vein, Percutaneous Approach (ICD-10-PCS; principal; 2020-09-30)
PROC: 3E033GC Introduction of Other Therapeutic Substance into Peripheral Vein, Percutaneous Approach (ICD-10-PCS; 2020-09-30)
DX: R07.89 Other chest pain (principal); R10.13 Epigastric pain
CPT/HCPCS: 36415; 71045-TC-FY; 80053; 82550; 82553; 83690; 84484; 85025; 93005; 93010; 99285-25; C9803; J0131; U0003; U0005

== ENCOUNTER 2021-01-22 19:59 | Emergency (ER) | payer BC ==
[2021-01-22 20:33] VITALS: BP 147/96; PULSE 89; TEMP 98.2; BMI 35.6
== END 2021-01-22 22:28 | disposition home or self-care (01) ==
LOC: JER 19:59
DX: R05.1 Acute cough (principal); R09.81 Nasal congestion; J06.9 Acute upper respiratory infection, unspecified
CPT/HCPCS: 71046-TC-FY; 87804; 99284-25; C9803; U0003; U0005